=== PATIENT | male | born 1995 | race Caucasian/White ===

== ENCOUNTER 2017-04-06 18:23 | Inpatient (IN) | payer OTHER ==
[~2017-04-06] VITALS: Ht 180.3 cm; Wt 69.0 kg
[2017-04-06 19:08] LABS: MEAN CORPUSCULAR HEMOGLOBIN 29.6 pg (27.0-33.0); MEAN CORPUSCULAR HGB CONC 34.2 g/dl (32.0-36.5); MEAN CORPUSCULAR VOLUME 86.6 fl (80.0-96.0); PLATELET COUNT, AUTOMATED 271 10^3/uL (150-450); RED CELL DISTRIBUTION WIDTH 12.2 % (11.5-14.5); WHITE BLOOD COUNT 7.3 10^3/uL (4.0-10.0)
[2017-04-06] MEDS ORDERED: VITMTA PO (19:18)
[2017-04-06 19:40] LABS: ALBUMIN 4.5 GM/DL (3.2-5.2); ALBUMIN/GLOBULIN RATIO 1.45 (1.00-1.93); ALKALINE PHOSPHATASE 105 U/L (45-117); ALT/SGPT 37 U/L (12-78); ANION GAP 5 MEQ/L (8-16); AST/SGOT 32 U/L (7-37); BILIRUBIN,DIRECT 0.1 MG/DL (0.0-0.2); BILIRUBIN,TOTAL 0.5 MG/DL (0.2-1.0); BLOOD UREA NITROGEN 10 MG/DL (7-18); CALCIUM LEVEL 9.7 MG/DL (8.5-10.1); CARBON DIOXIDE LEVEL 32 MEQ/L (21-32); CHLORIDE LEVEL 103 MEQ/L (98-107); CREATININE FOR GFR 0.71 MG/DL (0.70-1.30); GLUCOSE, FASTING 78 MG/DL (70-105); POTASSIUM SERUM 4.2 MEQ/L (3.5-5.1); SODIUM LEVEL 140 MEQ/L (136-145); TOTAL PROTEIN 7.6 GM/DL (6.4-8.2)
[2017-04-06 20:43] LABS: METHADONE URINE NEGATIVE (NEGATIVE)
[2017-04-06 23:06] VITALS: BP 137/82
[2017-04-07] MEDS ORDERED: traZODone 50 MG TAB PO PRN (00:15)
[2017-04-07] MEDS ORDERED: MAALOX 30 ML SUSP *UDC PO PRN (00:15)
[2017-04-07] MEDS ORDERED: ACETAMINOPHEN TAB 650MG DOSE (2X325MG) PO PRN (00:15)
[2017-04-07] MEDS ORDERED: MOM 30ML SUSPENSION UDC PO PRN (00:15)
[2017-04-07 06:00] VITALS: BP 112/54
--- NOTE | 2017-04-07 09:10 | HPEPDOC ---
[facility] Medical History & Physical Date of Admission Apr 06, 2017 History and Physical PCP: [facility] ATTENDING: Dr. Adalid Doran HPI: 22yoM admitted to [facility] for unspecified depressive disorder, being medically examined today. No acute medical complaints today. Denies any fevers, chills, weakness, fatigue, SCHMIDT, CP, SOB, cough, palpitations, abdominal pain, N/V /D or changes in bowel or bladder habits. 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 ROS: As noted in HPI, otherwise 11pt ROS of systems reviewed and unremarkable. PE: GEN: 22 yoM, appears stated age. Well-nourished, well developed. No acute distress. Alert and oriented x 3. Pleasant, interactive. HEENT: Normocephalic, atraumatic. Pupils are equal, round, and reactive to light. Extraocular movements are intact. No nystagmus appreciated. Sclera are nonicteric. Conjunctiva without injection. Nose midline. Nasal turbinates without bogginess. EACs both patent BL. TMs both visualized and ashley with good cone of light, no bulging or erythema. No facial asymmetry. Moist mucous membranes. Dentition fair. Pharynx pink and moist, no cobblestoning. Neck supple , trachea midline. No lymphadenopathy or thyromegaly appreciated. CHEST: Regular rate and rhythm, +S1, +S2 LUNGS: Clear to auscultation bilaterally. No wheezes, rales, or rhonchi. Breathing appears symmetric and easy. Patient is speaking in full sentences. No accessory muscle use. ABD: Round, soft, non-tender, non-distended. +Bowel sounds throughout. No rebound or guarding. No costovertebral angle tenderness. EXT: Pulses 2+ bilaterally dorsalis pedis and radial. No lower extremity edema appreciated. SKIN: [place], dry, warm. Capillary refill <2sec. No rashes. NEURO: Alert and oriented x 3. Cranial nerves III-XII are intact. No focal deficits appreciated. EKG: pending. A&P: 22yoM admitted to [facility] for unspecified depressive disorder 1. Psych. Plan per Psychiatry.Obtain baseline EKG to assure the safety of psychiatric medications as they can prolong the QT interval. 2. Follow up with PCP on discharge. 3. Staff member Arnaud present throughout exam. Vital Signs Vital Signs Date Time Temp Pulse Resp B/P (MAP) Pulse Ox O2 Delivery O2 Flow Rate FiO2 04/07/17 06:00 98.7 80 20 112/54 (73) 04/06/17 18:23 99 Room Air Laboratory Data Labs 24H Laboratory Tests 2 04/06/17 18:40: Nucleated Red Blood Cells % (auto) 0.0, Anion Gap 5L, Calcium Level 9.7, Aspartate Amino Transf (AST/SGOT) 32, Alanine Aminotransferase (ALT/SGPT) 37, Alkaline Phosphatase 105, Total Bilirubin 0.5, Direct Bilirubin 0.1, Total Protein 7.6, Albumin 4.5, Albumin/Globulin Ratio 1.45, Thyroid Stimulating Hormone (TSH) 0.539, Salicylates Level < 1.7L, Acetaminophen Level < 2.0L, Ethyl Alcohol Level < 0.003 04/06/17 19:54: Urine Amphetamines Screen NEGATIVE, Urine Benzodiazepines Screen NEGATIVE, Urine Opiates Screen NEGATIVE, Urine Methadone Screen NEGATIVE, Urine Barbiturates Screen NEGATIVE, Urine Phencyclidine Screen NEGATIVE, Urine Cocaine Metabolite Screen NEGATIVE, Urine Cannabinoids Screen NEGATIVE CBC/BMP Laboratory Tests 04/06/17 18:40 Red Blood Count 5.61, Mean Corpuscular Volume 86.6, Mean Corpuscular Hemoglobin 29.6, Mean Corpuscular Hemoglobin Concent 34.2, Red Cell Distribution Width 12.2 Home Medications Scheduled Multivitamins *[facility] STOCKED* (Thera M Plus *[facility] STOCKED*) 1 Tab Tab, 1 TAB PO DAILY Allergies Coded Allergies: No Known Allergies (Unverified , 04/06/17) Anu Barajas Apr 07, 2017 09:10
[2017-04-07 11:55] VITALS: BP 126/67
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
[2017-04-07] MEDS ORDERED: hydrOXYzine 50 MG TAB PO PRN (15:45)
[2017-04-07] MEDS: CitaloPRAM (CeleXA) 20 MG TAB PO SCH (16:05)
[2017-04-07 18:00] VITALS: BP 124/70
--- NOTE | 2017-04-08 01:08 | ECGEPIP ---
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
[2017-04-08 06:32] VITALS: BP 121/60
[2017-04-08] MEDS: CitaloPRAM (CeleXA) 20 MG TAB PO SCH (09:29)
[2017-04-08] MEDS ORDERED: TRAZO50TA PO (10:16)
[2017-04-08] MEDS ORDERED: CELE20TA PO (10:16)
[2017-04-08] MEDS ORDERED: HYDRO50TAB PO (10:16)
--- NOTE | 2017-04-08 11:44 | MHDSPDOC ---
[facility] Discharge Summary Discharge Summary DATE OF ADMISSION: Apr 06, 2017 at 22:17 DATE OF DISCHARGE: April 08, 2017 DISCHARGE DIAGNOSES: 1. Major Depressive disorder, single episode, severe, without psychotic symptoms REASON FOR ADMISSION: "Suicidal thoughts for the last 48 hours they became stronger but they have being building up for the last 3 months". History of Present Illness HISTORY OF THE PRESENT ILLNESS: Patient is a 22 -year-old , male, who pt states, "I want to kill myself." Pt reports suffering from suicidal thoughts with plan (MVA or OD) for the past 24 hours. He feels his suicidal thoughts are related to marital problems and legal issues. States he's been for the past 2 months (with no children), however is having significant financial issues and is unable to afford food for his family. Apparently, pt has not received his BH (housing assistance), therefore feels burdened with finances. Additionally, he was arrested last night following a domestic with his spouse. He also admits to having 2 bench warrants out for his arrest in [place] and [facility] is attempting to transfer charges to [place]. Pt continues to feel suicidal with plan to OD on sleeping medication or drive his vehicle into a tree. CONSULTANTS INVOLVED: None TREATMENT AND PROGRESS ON THE UNIT : The patient was evaluated yesterday morning and he was very depressed, he fulfilled the criteria for major Depressive disorder, but his depression is secondary to severe financial problems he has been having for the last couple of months and those problems are affecting his relationship with his . He said he had been irritable and that made things worse for him because that created the problem with his the night he came to the ED. He said he can't afford food for him and his , he has had problems with the car insurance and they have threatened him to send the report to the [employer] [place]. today, he said he spoke last night with his and he believes that because she got a liquor department manager job yesterday, she might be able to contribute to the household expenses. He thinks this might help with this situation and he spoke with his , both are willing to go for marriage counseling. He thinks with the medications I prescribed for him, the marital counseling and the money his will be able to contribute for the household, he will be O.K. community mental health social worker has instructed him as of what services are available for him, like loans for soldiers, etc (financial assistance). today he states hestill feels depressed, but less than yesterday because he had that conversation with his . He has denied SI?HI and psychotic symptoms. HOSPITAL COURSE: As above DISCHARGE ASSESSMENT: Patient is safe to be discharged, he is not suicidal, not homicidal and not psychotic. MENTAL STATUS EXAMINATION ON DISCHARGE: Patient is a 22 year old male, who is alert, cooperative, dressed in hospital clothes, with good eye contact, fair hygiene and grooming Speech is coherent, normal in rate, tone and volume. Language skills are fair. Thought processes including: Intact. Thought content: Goal-directed. Abstract reasoning, and computation: Fair. Description of associations: Good. Description of abnormal or psychotic thoughts: Denies suicidal ideation, denies homicidal ideation, denies thought delusions and denies auditory and visual hallucinations. Judgment: Limited. Insight: Limited. Orientation to oriented 3. Recent and remote memory: Intact. Attention span and concentration: Good. Language: Normal. Fund of knowledge: Fair. Mood: Less depressed. Affect: And less depressed, less constricted, more reactive. MEDICATIONS ON DISCHARGE: Scheduled Citalopram Hydrobromide (Celexa) 20 Mg Tab, 20 MG PO DAILY for DEPRESSION, #10 Multivitamins *[facility] STOCKED* (Thera M Plus *[facility] STOCKED*) 1 Tab Tab, 1 TAB PO DAILY, (Reported) Scheduled PRN Hydroxyzine HCl (Hydroxyzine HCl) 50 Mg Tab, 50 MG PO Q8H PRN for ANXIETY/ AGITATION, #21 Trazodone HCl (Trazodone HCl) 50 Mg Tab, 50 MG PO QHSP PRN for INSOMNIA, #7 PLAN/FOLLOWUP ARRANGEMENTS: * Mental Health Appt 1 * Mental Health 2nd Embedded * Therapist Pradeep Sutherland * Date Apr 12, 2017 * Time 14:00 Follow Up Care Education Label * Mental Health Appt 2 * Mental Health 2nd Embedded * Therapist Pradeep Sutherland * Date Apr 21, 2017 * Time 08:00 Follow Up Care Education Label * Medical * Medical Follow Up Ms. Mckinney * Mental Health 2nd Embedded * Date May 12, 2017 * Time 09:00 The amount of time spent in the coordination of care for this patient was approximately 30 minutes. Vital Signs/I&Os Vital Signs Date Time Temp Pulse Resp B/P (MAP) Pulse Ox O2 Delivery O2 Flow Rate FiO2 11/16/17 06:32 97.9 62 16 121/60 (80) 04/06/17 18:23 99 Room Air Laboratory Data Labs 24H Laboratory Tests 2 04/07/17 15:49: Total Creatine Kinase 136, Creatine Kinase MB 1.0, Creatine Kinase MB Relative Index 0.73, Troponin I < 0.02 Medications Scheduled Citalopram Hydrobromide (Celexa) 20 Mg Tab, 20 MG PO DAILY for DEPRESSION, #10 Multivitamins *[facility] STOCKED* (Thera M Plus *[facility] STOCKED*) 1 Tab Tab, 1 TAB PO DAILY, (Reported) Scheduled PRN Hydroxyzine HCl (Hydroxyzine HCl) 50 Mg Tab, 50 MG PO Q8H PRN for ANXIETY/ AGITATION, #21 Trazodone HCl (Trazodone HCl) 50 Mg Tab, 50 MG PO QHSP PRN for INSOMNIA, #7 Allergies Coded Allergies: No Known Allergies (Unverified , 04/06/17) DARELL FAULKNER MD Apr 08, 2017 11:44
== END 2017-04-08 12:15 | disposition home or self-care (01) | DRG 885 ==
LOC: M ED 18:23 → M ED INP 22:17 → M PSY 22:59
PROVIDERS: ADMIT Psychiatry & Neurology Psychiatry; ATTEND Psychiatry & Neurology Psychiatry
DX: F32.2 Major depressive disorder, single episode, severe without psychotic features (principal); Z63.0 Problems in relationship with spouse or partner; Z59.9 Problem related to housing and economic circumstances, unspecified; Z81.8 Family history of other mental and behavioral disorders

== ENCOUNTER 2017-04-23 06:22 | Inpatient (IN) | payer OTHER ==
[~2017-04-23] VITALS: Ht 180.3 cm; Wt 72.7 kg
[~2017-04-23 06:22] MED LIST: CELE20TA PO; HYDRO50TAB PO; TRAZO50TA PO; VITMTA PO
[2017-04-23 06:49] LABS: BASO % 0.3 % (0.0-1.0); EOS # 0.2 10^3/uL (0.0-0.50); IMMATURE GRANULOCYTE % 0.3 % (0-0); LYMPH # 2.6 10^3/uL (1.5-6.5); LYMPH % 38.5 % (24.0-44.0); MEAN CORPUSCULAR HEMOGLOBIN 30.6 pg (27.0-33.0); MEAN CORPUSCULAR HGB CONC 35.9 g/dl (32.0-36.5); MEAN CORPUSCULAR VOLUME 85.3 fl (80.0-96.0); MONO # 0.5 10^3/uL (0.0-0.8); NEUTROPHILS # 3.3 10^3/uL (1.8-7.7); NEUTROPHILS % 49.9 % (36.0-66.0); PLATELET COUNT, AUTOMATED 222 10^3/uL (150-450); RED CELL DISTRIBUTION WIDTH 12.4 % (11.5-14.5); WHITE BLOOD COUNT 6.6 10^3/uL (4.0-10.0)
[2017-04-23 07:12] LABS: ALBUMIN 3.8 GM/DL (3.2-5.2); ALBUMIN/GLOBULIN RATIO 1.31 (1.00-1.93); ALKALINE PHOSPHATASE 99 U/L (45-117); ALT/SGPT 32 U/L (12-78); ANION GAP 6 MEQ/L (8-16); AST/SGOT 24 U/L (7-37); BILIRUBIN,DIRECT 0.2 MG/DL (0.0-0.2); BILIRUBIN,TOTAL 0.8 MG/DL (0.2-1.0); BLOOD UREA NITROGEN 13 MG/DL (7-18); CALCIUM LEVEL 8.9 MG/DL (8.5-10.1); CARBON DIOXIDE LEVEL 28 MEQ/L (21-32); CHLORIDE LEVEL 108 MEQ/L (98-107); CREATININE FOR GFR 0.84 MG/DL (0.70-1.30); GLUCOSE, FASTING 98 MG/DL (70-105); SODIUM LEVEL 142 MEQ/L (136-145); TOTAL PROTEIN 6.7 GM/DL (6.4-8.2)
[2017-04-23] MEDS ORDERED: NS 1,000 ML IV ONE (07:15)
[2017-04-23] MEDS ORDERED: CHARCOAL ACTIVATED LIQUID 25 GM/120 ML BTL PO ONE (08:00)
--- NOTE | 2017-04-23 09:48 | ECGEPIP ---
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
[2017-04-23 12:26] LABS: METHADONE URINE NEGATIVE (NEGATIVE)
[2017-04-23] MEDS ORDERED: ACETAMINOPHEN TAB 650MG DOSE (2X325MG) PO PRN ×2 (16:15→18:30)
[2017-04-23] MEDS ORDERED: MAALOX 30 ML SUSP *UDC PO PRN ×2 (16:15→18:30)
[2017-04-23] MEDS ORDERED: MOM 30ML SUSPENSION UDC PO PRN ×2 (16:15→18:30)
[2017-04-23] MEDS ORDERED: traZODone 50 MG TAB PO PRN (16:15)
[2017-04-23] MEDS ORDERED: TRAZ50TA11 PO (17:13)
[2017-04-23] MEDS ORDERED: HYDR50TA70 PO (17:13)
[2017-04-23] MEDS ORDERED: CITA20TA4 PO (17:13)
[2017-04-23 18:07] VITALS: BP 119/84
[2017-04-23] MEDS ORDERED: hydrOXYzine 50 MG TAB PO PRN (18:30)
[2017-04-24 06:54] VITALS: BP 135/62
[2017-04-24] MEDS: MULTIVITAMINS/MINERALS THERAP 1 TAB PO SCH (09:42)
[2017-04-24] MEDS: CitaloPRAM (CeleXA) 20 MG TAB PO SCH (09:42)
[2017-04-24 11:14] VITALS: BP 124/74
[2017-04-24 18:00] VITALS: BP 126/70
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
[2017-04-25 06:37] VITALS: BP 134/61
[2017-04-25] MEDS: CitaloPRAM (CeleXA) 20 MG TAB PO SCH (09:28)
[2017-04-25] MEDS: MULTIVITAMINS/MINERALS THERAP 1 TAB PO SCH (09:28)
[2017-04-25 12:21] VITALS: BP 130/70
--- NOTE | 2017-04-25 17:15 | MHIPN ---
DATE: 04/25/2017 CHIEF COMPLAINT: Says feels okay. SUBJECTIVE: Seen for followup in the presence of staff. Says feels okay, and that he misses his , wants to go home. Has had no contact with his , per the patient, no visitation either. Says that he has no idea whether she will visit today or not. Says had a fairly good night. MENTAL STATUS EXAMINATION: Neat, cooperative though a bit guarded, at times somewhat disinterested. He is coherent. No agitation. No psychomotor retardation. Affect is restricted in range. Denies any suicidal thoughts or intents. No homicidal ideas or intents. No evidence of any psychosis. Cognition grossly intact. Judgment and insight remain compromised. ASSESSMENT: Major depressive disorder, severe, without psychotic features. PLAN: Continue current care, encourage participation in activities in the unit, and attempt to obtain collateral information. I would suggest that if there is some contact, a family meeting with his , prior to his discharge. He will be seeing the treatment team assigned to him tomorrow.
[2017-04-25 18:00] VITALS: BP 134/72
[2017-04-25] MEDS: traZODone 50 MG TAB PO PRN (20:37)
[2017-04-26 07:00] VITALS: BP 121/60
--- NOTE | 2017-04-26 09:18 | HPE ---
DATE OF ADMISSION: 04/23/2017 Please refer to psychiatric history and evaluation for further details on this admission. This examination and history is intended for medical issues which may need treatment, followup or consult on this 22-year-old male. ALLERGIES: No known allergies. PRIMARY CARE PROVIDER: [facility]. 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 EtOH none. No elicit drugs. IV drug use none. PAST MEDICAL HISTORY: Depression. PAST SURGICAL HISTORY: Negative. LABORATORY STUDIES: WBC 6.6, hemoglobin 15.6, hematocrit 435. Platelets 222. Sodium 142, potassium 4.0, chloride 108, CO2 28, BUN 13, creatinine 0.84. EKG shows sinus rhythm. Toxicology report was positive for opiates. He states he smoked heroine times one. Ten systems review was done and was unremarkable other than difficulty with sleep. No specific complaints. HOME MEDICATIONS: - citalopram 20 mg by mouth daily - hydroxyzine 50 mg by mouth three times daily as needed anxiety - MultiVite one by mouth daily - trazodone 50 mg by mouth daily at bedtime as needed for sleep PHYSICAL EXAMINATION: 22-year-old cooperative male, no acute distress. Height 71 inches, weight 72 kg, BMI 22.4. Blood pressure 124/74, pulse 74, respirations 16, temperature 98.2. The patient is alert and oriented times three. Pupils equal and reactive to light. Extraocular movements intact. Cornea and sclera clear. Conjunctiva normal. No facial asymmetry. Pharynx, tongue and gums pink and moist. Tongue is midline. Neck is supple, without lymphadenopathy. No thyromegaly. No goiter. Carotids 2+ without bruit. Chest clear to auscultation, without wheeze or retraction. Heart is regular. Abdomen benign. Bowel sounds positive. Genitourinary ()/Rectal: Not done. Extremities show equal strength, full range of motion. No cyanosis, clubbing or edema. Peripheral pulses equal and palpable bilaterally. Skin is warm and dry. IMPRESSION/PLAN: Psychiatric plan per psychiatry. Urine positive for opiates. Patient stated he smokes heroine IV times one. Will check acetaminophen level. EKG on file. Sinus rhythm .
[2017-04-26] MEDS: CitaloPRAM (CeleXA) 20 MG TAB PO SCH (09:29)
[2017-04-26] MEDS: MULTIVITAMINS/MINERALS THERAP 1 TAB PO SCH (09:29)
--- NOTE | 2017-04-26 13:08 | MHIPNPDOC ---
[facility] Progress Note Progress Note DATE OF SERVICE: 04/26/17 HISTORY: "Feels depressed, took an overdose. He is 22 years old. He is . 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 He came in after he had taken an overdose in front of his , wanted to kill himself, had been having difficulty for the last several months, he was here only a few weeks ago, was seen by Dr. Faulkner, please refer to her summary including discharge summary for details related to that admission. He was diagnosed with major depressive disorder, severe." VITAL SIGNS: See below. NEW TEST RESULTS: [facility] Laboratory Tests 2 04/26/17 09:28: Acetaminophen Level < 2.0L. CURRENT MEDICATIONS: See below. MENTAL STATUS EXAMINATION: Patient is a 22 year old male, who is sleepy, cooperative, dressed in hospital clothes, with good eye contact, fairly groomed Speech: Is Spontaneous and fluid. Language skills are Fair Thought processes including: Linear, logical Thought content: Guilty and angry thoughts about using drugs Abstract reasoning, and computation: Fair . Description of associations: Good Description of abnormal or psychotic thoughts: . Judgment: Poor Insight: Poor Orientation: oriented x 3 Recent and remote memory: good Attention span and concentration: Fair Language: Normal Fund of knowledge: Average Mood: "A little depressed". Affect: Congruent with mood DIAGNOSES: 1. Major depressive disorder, severe, without psychotic features. 2. Status post overdose. 3. Marital difficulties. ASSESSMENT: patient says he feels stupid and guilty for using drugs but is nt the first time he uses, he used heroine out of curiosity for the first time, when he was 17 years old. He used it this time because he got into a fight with his , "out of stupid things". He says he hasn't been using his medications. he was discharged on April 08 and he hasn't taken been taking his medications. MANAGEMENT PLAN: Will continue on the same medication treatment plan. Will address the addiction problem, he needs to stop minimizing it and needs to go to drug treatment. TIME SPENT: 20 minutes. Vital Signs Vital Signs Date Time Temp Pulse Resp B/P (MAP) Pulse Ox O2 Delivery O2 Flow Rate FiO2 04/26/17 07:00 99.3 70 16 121/60 (80) 04/25/17 06:37 Room Air 04/23/17 18:07 98 Laboratory Data [facility] Laboratory Tests 2 04/26/17 09:28: Acetaminophen Level < 2.0L Current Medications Current Medications Acetaminophen (Tylenol Tab) 650 mg Q6HP PRN PO HEADACHE or DISCOMFORT; Start 04/23/17 at 16:15; Stop 04/23/17 at 16:29; Status DC Acetaminophen (Tylenol Tab) 650 mg Q6HP PRN PO HEADACHE or DISCOMFORT; Start 04/23/17 at 18:30; Stop 05/23/17 at 18:29 Al Hydrox/Mg Hydrox/Simethicone (Mylanta) 30 ml Q4HP PRN PO HEARTBURN/ INDIGESTION; Start 04/23/17 at 16:15; Stop 04/23/17 at 16:29; Status DC Al Hydrox/Mg Hydrox/Simethicone (Mylanta) 30 ml Q4HP PRN PO HEARTBURN/ INDIGESTION; Start 04/23/17 at 18:30; Stop 05/23/17 at 18:29 Citalopram Hydrobromide (CeleXA) 20 mg DAILY PO Last administered on 04/26/17 09:29; Start 04/24/17 at 09:00; Stop 05/24/17 at 08:59 Home Med (Med Rec Complete!) ASDIRECTED XX ; Start 04/23/17 at 17:15; Stop 04/23/17 at 17:16; Status DC Hydroxyzine HCl (Atarax) 50 mg TIDP PRN PO ANXIETY/AGITATION; Start 04/23/17 at 18:30; Stop 05/23/17 at 18:29 Magnesium Hydroxide (Milk Of Magnesia) 30 ml DAILYPRN PRN PO CONSTIPATION; Start 04/23/17 at 16:15; Stop 04/23/17 at 16:29; Status DC Magnesium Hydroxide (Milk Of Magnesia) 30 ml DAILYPRN PRN PO CONSTIPATION; Start 04/23/17 at 18:30; Stop 05/23/17 at 18:29 Multivitamins (Theragram-M) 1 tab DAILY PO Last administered on 04/26/17 09:29 ; Start 04/24/17 at 09:00; Stop 05/24/17 at 08:59 Trazodone HCl (Desyrel) 50 mg QHSP PRN PO INSOMNIA; Start 04/23/17 at 16:15; Stop 04/23/17 at 16:29; Status DC Trazodone HCl (Desyrel) 50 mg QHSP PRN PO INSOMNIA Last administered on t 20:37; Start 04/23/17 at 18:45; Stop 05/23/17 at 18:44 Allergies Coded Allergies: No Known Allergies (Unverified , 04/23/17) DARELL FAULKNER MD Apr 26, 2017 13:08
[2017-04-26 18:00] VITALS: BP 122/74
[2017-04-26] MEDS: traZODone 50 MG TAB PO PRN (20:34)
[2017-04-27 07:00] VITALS: BP 111/52
[2017-04-27] MEDS: MULTIVITAMINS/MINERALS THERAP 1 TAB PO SCH (09:13)
[2017-04-27] MEDS: CitaloPRAM (CeleXA) 20 MG TAB PO SCH (09:13)
--- NOTE | 2017-04-27 11:00 | MHIPNPDOC ---
[facility] Progress Note Progress Note DATE OF SERVICE: 04/27/17 HISTORY: "Feels depressed, took an overdose. He is 22 years old. He is . 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 He came in after he had taken an overdose in front of his , wanted to kill himself, had been having difficulty for the last several months, he was here only a few weeks ago, was seen by Dr. Faulkner, please refer to her summary including discharge summary for details related to that admission. He was diagnosed with major depressive disorder, severe." VITAL SIGNS: See below. NEW TEST RESULTS: N/A CURRENT MEDICATIONS: See below. MENTAL STATUS EXAMINATION: Patient is a 22 year old male, who is more cooperative today, dressed in personal clothes, with good eye contact, fairly groomed Speech: Normal in rate, tone and volume Language skills are Intact Thought processes including: Coherent Thought content: Guilty and angry thoughts about using drugs Abstract reasoning, and computation: good. Description of associations: Good Description of abnormal or psychotic thoughts: . Judgment: Poor Insight: Poor Orientation: oriented x 3 Recent and remote memory: good Attention span and concentration: Fair Language: Normal Fund of knowledge: Average Mood: "Daisy anxious". Affect: Congruent with mood DIAGNOSES: 1. Major depressive disorder, severe, without psychotic features. 2. Status post overdose. 3. Marital difficulties. ASSESSMENT: patient says he would go back to [place] where he was raised, if he is asked to leave the . He says he knows he has mad a mistake by using drugs but he ignores if they are going to take a disciplinary action against him for that. He thinks they will. 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 He thinks he will be able to stop susing in he future because he knows the amount of problems they have caused him in the and he has seen some of his friends of an overdose. he didn't aske to be discharged today, he denies medication side effects. MANAGEMENT PLAN: Willdiscontinue Trazodone and will start him on Seroquel 75 mgs PO QHS. TIME SPENT: 20 minutes. Vital Signs Vital Signs Date Time Temp Pulse Resp B/P (MAP) Pulse Ox O2 Delivery O2 Flow Rate FiO2 04/27/17 07:00 98.0 67 14 111/52 (71) 04/25/17 06:37 Room Air 04/23/17 18:07 98 Current Medications Current Medications Acetaminophen (Tylenol Tab) 650 mg Q6HP PRN PO HEADACHE or DISCOMFORT; Start 04/23/17 at 16:15; Stop 04/23/17 at 16:29; Status DC Acetaminophen (Tylenol Tab) 650 mg Q6HP PRN PO HEADACHE or DISCOMFORT; Start 04/23/17 at 18:30; Stop 05/23/17 at 18:29 Al Hydrox/Mg Hydrox/Simethicone (Mylanta) 30 ml Q4HP PRN PO HEARTBURN/ INDIGESTION; Start 04/23/17 at 16:15; Stop 04/23/17 at 16:29; Status DC Al Hydrox/Mg Hydrox/Simethicone (Mylanta) 30 ml Q4HP PRN PO HEARTBURN/ INDIGESTION; Start 04/23/17 at 18:30; Stop 05/23/17 at 18:29 Citalopram Hydrobromide (CeleXA) 20 mg DAILY PO Last administered on 04/27/17 09:13; Start 04/24/17 at 09:00; Stop 05/24/17 at 08:59 Home Med (Med Rec Complete!) ASDIRECTED XX ; Start 04/23/17 at 17:15; Stop 04/23/17 at 17:16; Status DC Hydroxyzine HCl (Atarax) 50 mg TIDP PRN PO ANXIETY/AGITATION; Start 04/23/17 at 18:30; Stop 05/23/17 at 18:29 Magnesium Hydroxide (Milk Of Magnesia) 30 ml DAILYPRN PRN PO CONSTIPATION; Start 04/23/17 at 16:15; Stop 04/23/17 at 16:29; Status DC Magnesium Hydroxide (Milk Of Magnesia) 30 ml DAILYPRN PRN PO CONSTIPATION; Start 04/23/17 at 18:30; Stop 05/23/17 at 18:29 Multivitamins (Theragram-M) 1 tab DAILY PO Last administered on 04/27/17 09:13 ; Start 04/24/17 at 09:00; Stop 05/24/17 at 08:59 Trazodone HCl (Desyrel) 50 mg QHSP PRN PO INSOMNIA; Start 04/23/17 at 16:15; Stop 04/23/17 at 16:29; Status DC Trazodone HCl (Desyrel) 50 mg QHSP PRN PO INSOMNIA Last administered on t 20:34; Start 04/23/17 at 18:45; Stop 05/23/17 at 18:44 Allergies Coded Allergies: No Known Allergies (Unverified , 04/23/17) DARELL FAULKNER MD Apr 27, 2017 11:00
[2017-04-27 18:00] VITALS: BP 110/72
[2017-04-27] MEDS ORDERED: QUEtiapine FUMARATE 25 MG TAB PO SCH (21:00)
[2017-04-28 06:42] VITALS: BP 125/58
[2017-04-28] MEDS: CitaloPRAM (CeleXA) 20 MG TAB PO SCH (09:10)
[2017-04-28] MEDS: MULTIVITAMINS/MINERALS THERAP 1 TAB PO SCH (09:10)
--- NOTE | 2017-04-28 10:21 | MHDSPDOC ---
[facility] Discharge Summary Discharge Summary DATE OF ADMISSION: Apr 23, 2017 at 16:04 DATE OF DISCHARGE: 2016 DISCHARGE DIAGNOSES: 1. Adjustment disorders with depressive symptoms 2. Polysubstance use disorder 3. cluster B personality traits REASON FOR ADMISSION: As per Dr. Jacinto note upon admission: " He is 22 years old. He is . 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 He came in after he had taken an overdose in front of his , wanted to kill himself, had been having difficulty for the last several months, he was here only a few weeks ago. Subsequent to that, has followed up with Maia Billings, he is on citalopram at 20 mg daily. Also takes hydroxyzine as needed for anxiety, and trazodone 50 mg at night for sleep. Says has been attending his appointments and matters came to a head, once again , in the context of marital difficulties, financial difficulties, legal ones as well, which has to do with an incident at [place] recently, which he did not want to go into. 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 His transports him back and forth to work. Says is glad he survived, but does say that he feels his wants him out of the so "she can ruin my life." These are his words." CONSULTANTS INVOLVED: None TREATMENT AND PROGRESS ON THE UNIT : Patient has had a good response to medications but he seemed to be impatient to be discharged as he did on his previous admission. He wanted to be discharged 24 hours after his admission and I told him he needed to be observed, we needed to make sure that the medications work well for him and that he was not presenting with side effects. He complained of difficulties falling asleep and trazodone was discontinued and ever since he has been taking Seroquel and he has said that he sleeps better with this medication. He is on citalopram 20 mg by mouth daily and hydroxyzine when necessary for anxiety. He has consistently denied homicidal and suicidal ideation, denied auditory and visual hallucinations and denied thought delusions. 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 Initially he was not attending groups and now he has been attending them but irregularly. HOSPITAL COURSE: As above DISCHARGE ASSESSMENT: Patient was not in danger to self or others, he was not suicidal and not homicidal, he didn't have any thought delusions and he didn't report auditory or visual hallucinations. MENTAL STATUS EXAMINATION ON DISCHARGE: Patient is a 22 year old male, who is more cooperative today, dressed in personal clothes, with good eye contact, fairly groomed Speech: Normal in rate, tone and volume, spontaneous and fluent Language skills are Good Thought processes including: Coherent, linear Thought content: Guilty and angry thoughts about using drugs Abstract reasoning, and computation: fair Description of associations: Good Description of abnormal or psychotic thoughts: He denied suicidal or homicidal ideation, denies thought delusions and denies A/V hallucinations. Judgment: Limited Insight: Limited Orientation: oriented x 3 Recent and remote memory: good Attention span and concentration: Fair Language: Normal Fund of knowledge: Average Mood: "I'm still anxious". Affect: Congruent with mood MEDICATIONS ON DISCHARGE: Scheduled Citalopram Hydrobromide (Citalopram Hydrobromide) 20 Mg Tab, 20 MG PO DAILY, ( Reported) Multivitamins *[facility] STOCKED* (Thera M Plus *[facility] STOCKED*) 1 Tab Tab, 1 TAB PO DAILY, (Reported) Scheduled PRN Hydroxyzine HCl (Hydroxyzine HCl) 50 Mg Tab, 50 MG PO TID PRN for ANXIETY, ( Reported) Trazodone HCl (Trazodone HCl) 50 Mg Tab, 50 MG PO QHS PRN for SLEEP, (Reported) PLAN/FOLLOWUP ARRANGEMENTS: . The amount of time spent in the coordination of care for this patient was approximately 30 minutes. Vital Signs/I&Os Vital Signs Date Time Temp Pulse Resp B/P (MAP) Pulse Ox O2 Delivery O2 Flow Rate FiO2 04/28/17 06:42 98.0 64 16 125/58 (80) 04/25/17 06:37 Room Air 04/23/17 18:07 98 Medications Scheduled Citalopram Hydrobromide (Citalopram Hydrobromide) 20 Mg Tab, 20 MG PO DAILY, ( Reported) Multivitamins *[facility] STOCKED* (Thera M Plus *[facility] STOCKED*) 1 Tab Tab, 1 TAB PO DAILY, (Reported) Quetiapine Fumerate (Quetiapine Fumarate) 25 Mg Tab, 75 MG PO QHS for insomnia, #21 Scheduled PRN Hydroxyzine HCl (Hydroxyzine HCl) 50 Mg Tab, 50 MG PO TID PRN for ANXIETY, ( Reported) Allergies Coded Allergies: No Known Allergies (Unverified , 04/23/17) DARELL FAULKNER MD Apr 28, 2017 10:21
[2017-04-28] MEDS ORDERED: QUET1TAB7 PO (10:40)
[2017-04-29] MEDS ORDERED: CITA20TA4 PO (14:27)
== END 2017-04-28 13:37 | disposition home or self-care (01) | DRG 881 ==
LOC: M ED 06:22 → M ED INP 16:04 → M PSY 17:55
PROVIDERS: ADMIT Psychiatry & Neurology Psychiatry; ATTEND Psychiatry & Neurology Psychiatry
DX: F43.21 Adjustment disorder with depressed mood (principal); F60.89 Other specific personality disorders; Z59.8 Other problems related to housing and economic circumstances; Z63.0 Problems in relationship with spouse or partner; F41.9 Anxiety disorder, unspecified; Z79.899 Other long term (current) drug therapy; F11.90 Opioid use, unspecified, uncomplicated

== ENCOUNTER 2017-05-02 20:43 | Inpatient (IN) | payer OTHER ==
[~2017-05-02] VITALS: Ht 180.3 cm; Wt 72.7 kg
[~2017-05-02 20:43] MED LIST changes: +CITA20TA4 PO; +HYDR50TA70 PO; +QUET1TAB7 PO; +TRAZ50TA11 PO
[2017-05-02 20:59] LABS: BASO % 0.1 % (0.0-1.0); IMMATURE GRANULOCYTE % 0.5 % (0-0); LYMPH # 1.5 10^3/uL (1.5-6.5); LYMPH % 18.5 % (24.0-44.0); MEAN CORPUSCULAR HEMOGLOBIN 29.9 pg (27.0-33.0); MEAN CORPUSCULAR HGB CONC 35.2 g/dl (32.0-36.5); MONO # 0.3 10^3/uL (0.0-0.8); MONO % 3.4 % (0.0-5.0); NEUTROPHILS # 6.4 10^3/uL (1.8-7.7); NEUTROPHILS % 77.5 % (36.0-66.0); PLATELET COUNT, AUTOMATED 237 10^3/uL (150-450); RED CELL DISTRIBUTION WIDTH 12.4 % (11.5-14.5); WHITE BLOOD COUNT 8.2 10^3/uL (4.0-10.0)
[2017-05-02] MEDS ORDERED: NS 1,000 ML IV ONE (21:00)
[2017-05-02 21:24] LABS: ALBUMIN 4.1 GM/DL (3.2-5.2); ALBUMIN/GLOBULIN RATIO 1.32 (1.00-1.93); ALKALINE PHOSPHATASE 93 U/L (45-117); ALT/SGPT 26 U/L (12-78); ANION GAP 10 MEQ/L (8-16); AST/SGOT 19 U/L (7-37); BILIRUBIN,DIRECT 0.2 MG/DL (0.0-0.2); BILIRUBIN,TOTAL 0.6 MG/DL (0.2-1.0); BLOOD UREA NITROGEN 10 MG/DL (7-18); CALCIUM LEVEL 9.1 MG/DL (8.5-10.1); CARBON DIOXIDE LEVEL 25 MEQ/L (21-32); CHLORIDE LEVEL 105 MEQ/L (98-107); CREATININE FOR GFR 0.94 MG/DL (0.70-1.30); GLUCOSE, FASTING 115 MG/DL (70-105); POTASSIUM SERUM 3.7 MEQ/L (3.5-5.1); SODIUM LEVEL 140 MEQ/L (136-145); TOTAL PROTEIN 7.2 GM/DL (6.4-8.2)
[2017-05-02 21:34] LABS: METHADONE URINE NEGATIVE (NEGATIVE)
--- NOTE | 2017-05-03 07:23 | ECGEPIP ---
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
[2017-05-03] MEDS ORDERED: QUET1TAB7 PO (13:20)
[2017-05-03 16:00] VITALS: BP 139/82
[2017-05-03] MEDS ORDERED: hydrOXYzine 50 MG TAB PO PRN (16:15)
[2017-05-03] MEDS ORDERED: MOM 30ML SUSPENSION UDC PO PRN (16:15)
[2017-05-03] MEDS ORDERED: MAALOX 30 ML SUSP *UDC PO PRN (16:15)
[2017-05-03] MEDS ORDERED: ACETAMINOPHEN TAB 650MG DOSE (2X325MG) PO PRN (16:15)
--- NOTE | 2017-05-03 19:37 | ECGEPIP ---
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
[2017-05-03] MEDS: QUEtiapine FUMARATE 25 MG TAB PO SCH (20:37)
[2017-05-04 06:41] VITALS: BP 116/63
[2017-05-04] MEDS: CitaloPRAM (CeleXA) 20 MG TAB PO SCH (09:05)
[2017-05-04] MEDS: MULTIVITAMINS/MINERALS THERAP 1 TAB PO SCH (09:05)
--- NOTE | 2017-05-04 11:47 | MHHPEPDOC ---
General Date Of Admission: May 03, 2017 Legal Status: 9.39 Chief Complaint Suicidal ideation History of Present Illness HISTORY OF THE PRESENT ILLNESS: As per ED note:"PT has been struggling with depression and SI for a few months and 04/23 was admitted to [facility] after he attemptd suicide by OD. Yesterday PT's of 3 months (together 6 months) moved home to [place] and is pursuing a divorce he does not want. PT states he has a hx of co dependancy and that he continues to feel suicidal in regards to his marriage endijng and cannot create goals for his future. 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 After PT's left yesterday he spent a few hours feeling very sad and keeping complete focus on his depression and he states he attmpted suicide by OD. He became scared and called a friend who then called for help. PT denies HI or hallucinations. He is in treatment at the [facility] and findsit beneficial. PT is aware currently there are no beds on [facility] and that he will need to be transfered. If the weather is bad PT may remain ED and be transfered to [facility] if discharges have been completed. 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[facility] [place] -[place] [phone] Psychiatric Review of Systems Depression (2 or more weeks): depressed mood, insomnia/hypersomnia, feelings of excess/guilt, feelings of worthlesness, decreased energy, difficulty concentrating Robina (4 or more days of): engages in risky behavior Psychosis: denies PTSD: denies Anxiety: situational anxiety, stressor related anxiety Anxiety/ 6 months or more of: restlessness, keyed up, difficulty concentrating , irritability, muscle tension, sleep disturbance Past Psychiatric History Previous Psychiatric Diagnosis: Major Depressive disorder, Substance Use disorder, cluster B personality Previous Psychiatric Admissions: [facility]. This is the third hospitalization in three months Suicide Attempts: yes ( overdose) Psychiatric Follow-up: Behavioral Health Psychiatric medications: He took Seroquel consistently but he missed Celexa a few times Past Medical History Head Injury: No Seizures: No Hospitalizations: Yes Surgeries: No Family Medical/Psychiatric HX Psychiatric Disorders: No Addiction: No Suicide Attemps/Completions: No Addiction History heroin Social History Childhood: "Pretty normal". Has a younger sibling, he denies any type of abuse. He says his father "has never been there for me" Abuse/Trauma:.Denies Current Living Situation: [place] living on post because he already had problems with his , but he had been living off post with his who just left him and took off to [place].. Education: HS. 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 Social Support: A friend who lives in [place]. His mother. Legal: Two pending bench warrants in [place] Marital: but . His just left him. Mental Status Examination General Appearance: well groomed, appears stated age Build: thin Demeanor: preoccupied Eye Contact: avoidant Activity: anxious Behavior: cooperative Speech: clear, spontaneous, reg/rate,rhythm,volume Mood: depressed, anxious Affect: constricted, congruent Thought Process: logical/linear Thought Content (Delusions): none reported Thought Content (Other): none reported Thought Content (Aggressive): none reported Perception (Hallucinations): none reported Perception (Other): none reported Cognition (Impairment of): none reported Cognition(Intelligence Est.): average Oriented: Awake, Alert, Oriented times three Insight: poor Judgment: Poor Diagnoses 1. Major Depressive Disorder, recurrent, severe 2. Cluster B personality disorder. Assessment Patient seems to be depressed. This is his third admission in less than 2 months , he doesn't have any coping skills. He has been using drugs, even when this time his urine tox was clean, he hasn'ty been dealing at all with change and difficulties. I believe he will benefit from growth media mixer mushroom treatment. Initial Treatment Plan 1. Patient was admitted on a status. 2. Complete history was obtained. 3. With patients permission, family will be contacted and database will be expanded. 4. Patients medication regimen will be reviewed and changed accordingly. 5. Patient will be provided with protected environment. 6. Patient will be treated with individual, group, and milieu therapies. 7. Patient will receive supportive psych-education. 8. Discharge planning will commence immediately. 9. Outpatient follow-up treatment will be strongly recommended. 10. The initial treatment plan will focus initially on: * Depression. * Risk for suicide. * Substance abuse. ESTIMATED LENGTH OF STAY: 5-7 DAYS. TIME SPENT COUNSELING AND COORDINATING INITIAL CARE: 60 minutes. Vital Signs Vital Signs Date Time Temp Pulse Resp B/P (MAP) Pulse Ox O2 Delivery O2 Flow Rate FiO2 05/04/17 06:41 98.9 68 14 116/63 (80) Room Air 05/03/17 16:00 100 Medications Scheduled Citalopram Hydrobromide (Citalopram Hydrobromide) 20 Mg Tab, 20 MG PO DAILY, ( Reported) Multivitamins *[facility] STOCKED* (Thera M Plus *[facility]OCKED*) 1 Tab Tab, 1 TAB PO DAILY, (Reported) Quetiapine Fumerate (Quetiapine Fumarate) 25 Mg Tab, 75 MG PO QHS, (Reported) Scheduled PRN Hydroxyzine HCl (Hydroxyzine HCl) 50 Mg Tab, 50 MG PO TID PRN for ANXIETY, ( Reported) Allergies Coded Allergies: No Known Allergies (Unverified , 05/02/17) DARELL FAULKNER MD May 04, 2017 11:47
[2017-05-04] MEDS: hydrOXYzine 50 MG TAB PO PRN ×2 (12:12→20:42)
[2017-05-04 18:27] VITALS: BP 111/53
[2017-05-04] MEDS: QUEtiapine FUMARATE 25 MG TAB PO SCH (20:40)
--- NOTE | 2017-05-04 22:41 | HPE ---
DATE OF ADMISSION: 05/03/2017 HISTORY OF PRESENT ILLNESS: Please refer to the psychiatric history and evaluation for further details on this admission. This examination and history is intended for medical issues which may need treatment, followup or consultation on this 22-year-old male who was readmitted after having taken an overdose of Tylenol, aspirin, Benadryl, and Celexa. He was recently discharged 04/28/2017 from the inpatient mental health unit. PRIMARY CARE PROVIDER: [facility] ALLERGIES: No known allergies. 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 He states ETOH - none. Smokes - none. Recreational drug use - none. PAST MEDICAL HISTORY: depression. PAST SURGICAL HISTORY: negative. HOME MEDICATIONS: - citalopram 20 mg by mouth daily - hydroxyzine 50 mg by mouth three times a day as needed for anxiety - Multivite 1 by mouth daily - trazodone 75 mg by mouth at bedtime as needed for sleep LABORATORY DATA: WBC 8.2, hemoglobin 15, hematocrit 42.6, platelet 237. Sodium 140, potassium 3.7, chloride 105, CO2 25. BUN 10, creatinine 0.94. Nonfasting glucose 115. BUN 10, creatinine 0.94. Liver enzymes were normal. Initially acetaminophen at 2049 hours on the 10th it was 23.8 and on the 11th it rico to 27.9. Later on 0235 hours it was coming down again to 17.6. REVIEW OF SYSTEMS: 10-systems review was done and was unremarkable. The patient had no complaints. PHYSICAL EXAMINATION: 22-year-old cooperative male. No acute distress. Vital signs stable. Height 71 inches, weight 72.7 kg. BMI 22. Blood pressure 116/62, pulse 58, respirations 14, temperature 98.9. The patient is alert and oriented times three. Pupils equal and reactive to light. Extraocular movements intact. Cornea and sclera clear. Conjunctiva normal. No facial asymmetry. Pharynx, tongue, and gums pink and moist. Tongue is midline. Neck is supple, without lymphadenopathy. No thyromegaly. No goiter. Carotids 2+ without bruit. Chest clear to auscultation, without wheeze or retraction. Heart is regular. Abdomen benign. Bowel sounds positive. /Rectal: Not done. Extremities show equal strength. Full range of motion. No cyanosis, clubbing or edema. Peripheral pulses equal and palpable bilaterally. Skin is warm and dry. Cranial nerves III-XII grossly intact. IMPRESSION AND PLAN: 1. Psychiatric: Plan per psychiatry. 2. EKG on file is sinus rhythm. 3. No acute medical issues.
[2017-05-05 06:47] VITALS: BP 113/66
[2017-05-05] MEDS: MULTIVITAMINS/MINERALS THERAP 1 TAB PO SCH (08:24)
[2017-05-05] MEDS: CitaloPRAM (CeleXA) 20 MG TAB PO SCH (08:24)
[2017-05-05] MEDS: hydrOXYzine 50 MG TAB PO PRN ×2 (08:24→13:26)
--- NOTE | 2017-05-05 12:43 | MHIPNPDOC ---
[facility] Progress Note Progress Note DATE OF SERVICE: 05/05/17 HISTORY: HISTORY OF THE PRESENT ILLNESS: As per ED note:"PT has been struggling with depression and SI for a few months and 04/23 was admitted to [facility] after he attemptd suicide by OD. Yesterday PT's of 3 months (together 6 months) moved home to [place] and is pursuing a divorce he does not want. PT states he has a hx of co dependancy and that he continues to feel suicidal in regards to his marriage endijng and cannot create goals for his future. 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 After PT's left yesterday he spent a few hours feeling very sad and keeping complete focus on his depression and he states he attmpted suicide by OD. He became scared and called a friend who then called for help. PT denies HI or hallucinations. He is in treatment at the [facility] and findsit beneficial. PT is aware currently there are no beds on [facility] and that he will need to be transfered. If the weather is bad PT may remain ED and be transfered to [facility] if discharges have been completed. 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 NEW TEST RESULTS: N/A CURRENT MEDICATIONS: See below. MENTAL STATUS EXAMINATION: Patient is a 22-year old male, who is alert, cooperative, dressed in hospital clothes, a little calmer. Speech: Is Coherent Language skills are Good Thought processes including: Linear, coherent Thought content: Focused on the possibility of going to rehab. Abstract reasoning, and computation: Not assessed at this time Description of associations: Good Description of abnormal or psychotic thoughts: Denies SI/HI, denies A/V, denies thought delusions Judgment: Limited Insight: Limited Orientation: Oriented x 3 Recent and remote memory: Intact Attention span and concentration: Good Language: Normal Fund of knowledge: Good Mood: Anxious/depressed Affect: Depressed/anxious DIAGNOSES: 1. Major Depressive disorder, recurrent, severe 2. Heroine use disorder ASSESSMENT: Patient seems to be irritable, but he is a little less anxious than yesterday. He says he slept well and he spoke with his mother and she has told him he will have to go for treatment (Rehab). He says he can go to Rehab at a place close to where his parents live in [place]. MANAGEMENT PLAN: Will continue on the same medications and will tell him he has to go for treatment now, within the , it is what his DELLA is demanding him to do. TIME SPENT: 20 minutes. Vital Signs Vital Signs Date Time Temp Pulse Resp B/P (MAP) Pulse Ox O2 Delivery O2 Flow Rate FiO2 05/05/17 06:47 96.8 60 14 113/66 (82) Room Air 05/03/17 16:00 100 Current Medications Current Medications Acetaminophen (Tylenol Tab) 650 mg Q6HP PRN PO HEADACHE or DISCOMFORT; Start 05/03/17 at 16:15; Stop 06/02/17 at 16:14 Al Hydrox/Mg Hydrox/Simethicone (Mylanta) 30 ml Q4HP PRN PO HEARTBURN/ INDIGESTION; Start 05/03/17 at 16:15; Stop 06/02/17 at 16:14 Citalopram Hydrobromide (CeleXA) 20 mg DAILY PO Last administered on 08:24; Start 05/04/17 at 09:00; Stop 06/03/17 at 08:59 Home Med (Med Rec Complete!) ASDIRECTED XX ; Start 05/03/17 at 13:30; Stop at 13:30; Status DC Hydroxyzine HCl (Atarax) 50 mg Q4HP PRN PO ANXIETY Last administered on 08:24; Start 05/04/17 at 12:00; Stop 06/02/17 at 16:14 Hydroxyzine HCl (Atarax) 50 mg TID PRN PO ANXIETY Last administered on 20:37; Start 05/03/17 at 16:15; Stop 05/04/17 at 11:55; Status DC Magnesium Hydroxide (Milk Of Magnesia) 30 ml DAILYPRN PRN PO CONSTIPATION; Start 05/03/17 at 16:15; Stop 06/02/17 at 16:14 Multivitamins (Theragram-M) 1 tab DAILY PO Last administered on 12/13/17at 08: 24; Start 05/04/17 at 09:00; Stop 06/03/17 at 08:59 Olanzapine (ZyPREXA) 5 mg Q6HP PRN PO ANXIETY/AGITATION; Start 05/04/17 at 12: 00; Stop 06/03/17 at 11:59 Quetiapine Fumarate (SEROquel) 75 mg QHS PO Last administered on 05/04/17t 20: 40; Start 05/03/17 at 21:00; Stop 06/02/17 at 20:59 Allergies Coded Allergies: No Known Allergies (Unverified , 05/02/17) DARELL FAULKNER MD May 05, 2017 12:43
[2017-05-05] MEDS: OLANZapine 5 MG TAB PO PRN (14:30)
[2017-05-05 18:00] VITALS: BP 129/58
[2017-05-05] MEDS: QUEtiapine FUMARATE 25 MG TAB PO SCH (20:47)
[2017-05-06 07:02] VITALS: BP 134/63
[2017-05-06] MEDS: MULTIVITAMINS/MINERALS THERAP 1 TAB PO SCH (08:24)
[2017-05-06] MEDS: CitaloPRAM (CeleXA) 20 MG TAB PO SCH (08:25)
[2017-05-06] MEDS: OLANZapine 5 MG TAB PO PRN (09:09)
--- NOTE | 2017-05-06 11:07 | MHIPNPDOC ---
[facility] Progress Note Progress Note DATE OF SERVICE: 05/06/17 HISTORY: HISTORY OF THE PRESENT ILLNESS: As per ED note:"PT has been struggling with depression and SI for a few months and 04/23 was admitted to [facility] after he attemptd suicide by OD. Yesterday PT's of 3 months (together 6 months) moved home to [place] and is pursuing a divorce he does not want. PT states he has a hx of co dependancy and that he continues to feel suicidal in regards to his marriage endijng and cannot create goals for his future. 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 After PT's left yesterday he spent a few hours feeling very sad and keeping complete focus on his depression and he states he attmpted suicide by OD. He became scared and called a friend who then called for help. PT denies HI or hallucinations. He is in treatment at the [facility] and findsit beneficial. PT is aware currently there are no beds on [facility] and that he will need to be transfered. If the weather is bad PT may remain ED and be transfered to [facility] if discharges have been completed. 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 NEW TEST RESULTS: N/A CURRENT MEDICATIONS: See below. MENTAL STATUS EXAMINATION: Patient is a 22-year old male, who is alert, cooperative, dressed in hospital clothes, a little calmer. Speech: spontaneous and fluent Language skills are fair Thought processes including: intact Thought content: Anxious thoughts about meeting with his DELLA to discuss his Rehab Abstract reasoning, and computation: Not assessed at this time Description of associations: Good Description of abnormal or psychotic thoughts: Denies SI/HI, denies A/V, denies thought delusions Judgment: Limited Insight: Limited Orientation: Oriented x 3 Recent and remote memory: Intact Attention span and concentration: Good Language: Normal Fund of knowledge: Good Mood: Anxious/depressed Affect: Depressed/anxious DIAGNOSES: 1. Major Depressive disorder, recurrent, severe 2. Heroine use disorder ASSESSMENT: He has accepted he won't go to [place] for Rehab. He has understood that [facility] wants to [facility] him to Rehab directly from [facility]. He still lokks depressed, although he tries to minimize it. He says it has helped him to talk to his family, they have been very supportive. He also says he has been talking to his who has decided to hold on the divorce process and she has been supportive too. MANAGEMENT PLAN: Will continue on the same medications and will tell him he has to go for treatment now, within the , it is what his DELLA is demanding him to do. TIME SPENT: 20 minutes. Vital Signs Vital Signs Date Time Temp Pulse Resp B/P (MAP) Pulse Ox O2 Delivery O2 Flow Rate FiO2 05/06/17 07:02 97.9 64 16 134/63 (86) 05/05/17 06:47 Room Air 05/03/17 16:00 100 Current Medications Current Medications Acetaminophen (Tylenol Tab) 650 mg Q6HP PRN PO HEADACHE or DISCOMFORT; Start 05/03/17 at 16:15; Stop 06/02/17 at 16:14 Al Hydrox/Mg Hydrox/Simethicone (Mylanta) 30 ml Q4HP PRN PO HEARTBURN/ INDIGESTION; Start 05/03/17 at 16:15; Stop 06/02/17 at 16:14 Citalopram Hydrobromide (CeleXA) 20 mg DAILY PO Last administered on 08:25; Start 05/04/17 at 09:00; Stop 06/03/17 at 08:59 Home Med (Med Rec Complete!) ASDIRECTED XX ; Start 05/03/17 at 13:30; Stop at 13:30; Status DC Hydroxyzine HCl (Atarax) 50 mg Q4HP PRN PO ANXIETY Last administered on 13:26; Start 05/04/17 at 12:00; Stop 06/02/17 at 16:14 Hydroxyzine HCl (Atarax) 50 mg TID PRN PO ANXIETY Last administered on 20:37; Start 05/03/17 at 16:15; Stop 05/04/17 at 11:55; Status DC Magnesium Hydroxide (Milk Of Magnesia) 30 ml DAILYPRN PRN PO CONSTIPATION; Start 05/03/17 at 16:15; Stop 06/02/17 at 16:14 Multivitamins (Theragram-M) 1 tab DAILY PO Last administered on 05/06/17 08: 24; Start 05/04/17 at 09:00; Stop 06/03/17 at 08:59 Olanzapine (ZyPREXA) 5 mg Q6HP PRN PO ANXIETY/AGITATION Last administered on 09:09; Start 05/04/17 at 12:00; Stop 06/03/17 at 11:59 Quetiapine Fumarate (SEROquel) 75 mg QHS PO Last administered on 05/05/17 20: 47; Start 05/03/17 at 21:00; Stop 06/02/17 at 20:59 Allergies Coded Allergies: No Known Allergies (Unverified , 05/02/17) DARELL FAULKNER MD May 06, 2017 11:07
[2017-05-06 18:00] VITALS: BP 128/79
[2017-05-06] MEDS: hydrOXYzine 50 MG TAB PO PRN (19:07)
[2017-05-06] MEDS: QUEtiapine FUMARATE 25 MG TAB PO SCH (20:22)
[2017-05-07 06:55] VITALS: BP 119/56
[2017-05-07] MEDS: hydrOXYzine 50 MG TAB PO PRN ×2 (08:07→20:18)
[2017-05-07] MEDS: CitaloPRAM (CeleXA) 20 MG TAB PO SCH (08:08)
[2017-05-07] MEDS: MULTIVITAMINS/MINERALS THERAP 1 TAB PO SCH (08:08)
[2017-05-07] MEDS: OLANZapine 5 MG TAB PO PRN (09:08)
--- NOTE | 2017-05-07 11:36 | MHIPNPDOC ---
[facility] Progress Note Progress Note DATE OF SERVICE: 05/07/17 HISTORY: HISTORY OF THE PRESENT ILLNESS: As per ED note:"PT has been struggling with depression and SI for a few months and 04/23 was admitted to [facility] after he attemptd suicide by OD. Yesterday PT's of 3 months (together 6 months) moved home to [place] and is pursuing a divorce he does not want. PT states he has a hx of co dependancy and that he continues to feel suicidal in regards to his marriage endijng and cannot create goals for his future. 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 After PT's left yesterday he spent a few hours feeling very sad and keeping complete focus on his depression and he states he attmpted suicide by OD. He became scared and called a friend who then called for help. PT denies HI or hallucinations. He is in treatment at the [facility] and findsit beneficial. PT is aware currently there are no beds on [facility] and that he will need to be transfered. If the weather is bad PT may remain ED and be transfered to [facility] if discharges have been completed. 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 -Will [phone] VITAL SIGNS: See below. NEW TEST RESULTS: N/A CURRENT MEDICATIONS: See below. MENTAL STATUS EXAMINATION: Patient is a 22-year old male, who is alert, cooperative, dressed in personal clothes, sad, improved eye contact Speech: Normal in rate, tone and volume Language skills are good Thought processes including: Coherent, Linear Thought content: Anxious thoughts about meeting with his [facility] to discuss his Rehab. he thinks he's ging to be away from his family for the Holidays and he says he needs them, he would be better off with his family Abstract reasoning, and computation: Not assessed at this time Description of associations: Not loose Description of abnormal or psychotic thoughts: Denies SI/HI, denies A/V, denies thought delusions Judgment: Poor Insight: Poor Orientation: Oriented x 3 Recent and remote memory: Good Attention span and concentration: Fair Language: Normal Fund of knowledge: Good Mood: Anxious/depressed Affect: Depressed/anxious DIAGNOSES: 1. Major Depressive disorder, recurrent, severe 2. Heroine use disorder ASSESSMENT: Patient's insight continues to be poor. He wants to go out to live with his family, he wants to be here because his is coming from [place]. He still doesn't realize thet they are not good together and they really want to live together, they both need treatment. He has a co dependent relationship and he is resistant to acknowledge how severe is his psychiatric/ substance abuse problem. MANAGEMENT PLAN: His DELLA is coming today to talk to him about exterminator treatment. shaka continue on the same treatment plan. TIME SPENT: 20 minutes. Vital Signs Vital Signs Date Time Temp Pulse Resp B/P (MAP) Pulse Ox O2 Delivery O2 Flow Rate FiO2 05/07/17 06:55 98.3 57 12 119/56 (77) 05/05/17 06:47 Room Air 05/03/17 16:00 100 Current Medications Current Medications Acetaminophen (Tylenol Tab) 650 mg Q6HP PRN PO HEADACHE or DISCOMFORT; Start 05/03/17 at 16:15; Stop 06/02/17 at 16:14 Al Hydrox/Mg Hydrox/Simethicone (Mylanta) 30 ml Q4HP PRN PO HEARTBURN/ INDIGESTION; Start 05/03/17 at 16:15; Stop 06/02/17 at 16:14 Citalopram Hydrobromide (CeleXA) 20 mg DAILY PO Last administered on 08:08; Start 05/04/17 at 09:00; Stop 06/03/17 at 08:59 Home Med (Med Rec Complete!) ASDIRECTED XX ; Start 05/03/17 at 13:30; Stop at 13:30; Status DC Hydroxyzine HCl (Atarax) 50 mg Q4HP PRN PO ANXIETY Last administered on 08:07; Start 05/04/17 at 12:00; Stop 06/02/17 at 16:14 Hydroxyzine HCl (Atarax) 50 mg TID PRN PO ANXIETY Last administered on 20:37; Start 05/03/17 at 16:15; Stop 05/04/17 at 11:55; Status DC Magnesium Hydroxide (Milk Of Magnesia) 30 ml DAILYPRN PRN PO CONSTIPATION; Start 05/03/17 at 16:15; Stop 06/02/17 at 16:14 Multivitamins (Theragram-M) 1 tab DAILY PO Last administered on 05/07/17 08: 08; Start 05/04/17 at 09:00; Stop 06/03/17 at 08:59 Olanzapine (ZyPREXA) 5 mg Q6HP PRN PO ANXIETY/AGITATION Last administered on 09:08; Start 05/04/17 at 12:00; Stop 06/03/17 at 11:59 Quetiapine Fumarate (SEROquel) 75 mg QHS PO Last administered on 05/06/17 20: 22; Start 05/03/17 at 21:00; Stop 06/02/17 at 20:59 Allergies Coded Allergies: No Known Allergies (Unverified , 05/02/17) DARELL FAULKNER MD May 07, 2017 11:36
[2017-05-07 18:00] VITALS: BP 146/82
[2017-05-07] MEDS: QUEtiapine FUMARATE 25 MG TAB PO SCH (20:18)
[2017-05-08 06:47] VITALS: BP 116/67
[2017-05-08] MEDS: CitaloPRAM (CeleXA) 20 MG TAB PO SCH (08:45)
[2017-05-08] MEDS: MULTIVITAMINS/MINERALS THERAP 1 TAB PO SCH (08:45)
[2017-05-08] MEDS: hydrOXYzine 50 MG TAB PO PRN ×3 (08:46→20:41)
[2017-05-08] MEDS: OLANZapine 5 MG TAB PO PRN (10:57)
[2017-05-08 18:41] VITALS: BP 136/85
[2017-05-08] MEDS: QUEtiapine FUMARATE 25 MG TAB PO SCH (20:41)
[2017-05-09 06:45] VITALS: BP 114/57
[2017-05-09] MEDS: hydrOXYzine 50 MG TAB PO PRN ×3 (08:37→20:41)
[2017-05-09] MEDS: MULTIVITAMINS/MINERALS THERAP 1 TAB PO SCH (08:37)
[2017-05-09] MEDS: CitaloPRAM (CeleXA) 20 MG TAB PO SCH (08:37)
[2017-05-09] MEDS: OLANZapine 5 MG TAB PO PRN (15:56)
[2017-05-09 18:15] VITALS: BP 138/73
[2017-05-09] MEDS: QUEtiapine FUMARATE 25 MG TAB PO SCH (20:41)
[2017-05-10 06:47] VITALS: BP 122/59
[2017-05-10] MEDS: MULTIVITAMINS/MINERALS THERAP 1 TAB PO SCH (08:19)
[2017-05-10] MEDS: CitaloPRAM (CeleXA) 20 MG TAB PO SCH (08:19)
[2017-05-10] MEDS ORDERED: clonazePAM 0.5 MG TAB PO ONE (12:30)
--- NOTE | 2017-05-10 12:34 | MHIPNPDOC ---
[facility] Progress Note Progress Note DATE OF SERVICE: 05/10/17 HISTORY: Patient reports very bad anxiety, ruminating about everything in his life. Reports staying up at night worrying, taking 1 hour to fall asleep even with seroquel. States he is still depressed but not suicidal, without intent and plan. Patient wishes to get marriage counseling outpt, and states that he will actually take his medications once he is discharged, unlike last time. States the celexa gave him side effect of feeling lightheaded. Denies manic symptoms and AVH. Patient has been hospitalized for SI 3 times total in the last 2 months, largely due to stress with his . Patient came in this time after OD on medications. VITAL SIGNS: See below. NEW TEST RESULTS: na CURRENT MEDICATIONS: See below. MENTAL STATUS EXAMINATION: Behavior: cooperative, related Speech: Normal in rate, tone and volume Thought processes including: Coherent, Linear Thought content: anxious ruminations of stressful factors in his life Judgment: Poor Insight: poor Orientation: Oriented x 3 Mood: Anxious, depressed Affect: anxious, dysthymic DIAGNOSES: 1. Major Depressive disorder, recurrent, severe 2. opiate use disorder ASSESSMENT: Patient remains depressed and anxious. He believes he has a plan to ensure his outpatient mental well being, but unclear how good his insight is. MANAGEMENT PLAN: - Change celexa to lexapro 10 mg daily due to side effects, for mood - Discontinued zyprexa and seroquel - Begin klonopin 0.25 mg BID for anxiety (gave him one dose now to see how he tolerates and whether the dose is high enough) - Begin trazodone 100 mg qhs PRN for sleep - PRNs: MOM, tylenol, mylanta TIME SPENT: 20 minutes. Vital Signs Vital Signs Date Time Temp Pulse Resp B/P (MAP) Pulse Ox O2 Delivery O2 Flow Rate FiO2 05/10/17 06:47 98.4 66 18 122/59 (80) 05/08/17 06:47 Room Air Current Medications Current Medications Acetaminophen (Tylenol Tab) 650 mg Q6HP PRN PO HEADACHE or DISCOMFORT; Start 05/03/17 at 16:15; Stop 06/02/17 at 16:14 Al Hydrox/Mg Hydrox/Simethicone (Mylanta) 30 ml Q4HP PRN PO HEARTBURN/ INDIGESTION; Start 05/03/17 at 16:15; Stop 06/02/17 at 16:14 Citalopram Hydrobromide (CeleXA) 20 mg DAILY PO Last administered on 08:19; Start 05/04/17 at 09:00; Stop 06/03/17 at 08:59 Home Med (Med Rec Complete!) ASDIRECTED XX ; Start 05/03/17 at 13:30; Stop at 13:30; Status DC Hydroxyzine HCl (Atarax) 50 mg Q4HP PRN PO ANXIETY Last administered on 20:41; Start 05/04/17 at 12:00; Stop 06/02/17 at 16:14 Hydroxyzine HCl (Atarax) 50 mg TID PRN PO ANXIETY Last administered on 20:37; Start 05/03/17 at 16:15; Stop 05/04/17 at 11:55; Status DC Magnesium Hydroxide (Milk Of Magnesia) 30 ml DAILYPRN PRN PO CONSTIPATION; Start 05/03/17 at 16:15; Stop 06/02/17 at 16:14 Multivitamins (Theragram-M) 1 tab DAILY PO Last administered on 05/10/17 08: 19; Start 05/04/17 at 09:00; Stop 06/03/17 at 08:59 Olanzapine (ZyPREXA) 5 mg Q6HP PRN PO ANXIETY/AGITATION Last administered on 15:56; Start 05/04/17 at 12:00; Stop 06/03/17 at 11:59 Quetiapine Fumarate (SEROquel) 75 mg QHS PO Last administered on 05/09/17 20: 41; Start 05/03/17 at 21:00; Stop 06/02/17 at 20:59 Allergies Coded Allergies: No Known Allergies (Unverified , 05/02/17) ANTIONE DUNLAP MD May 10, 2017 12:34
[2017-05-10 18:00] VITALS: BP 125/70
[2017-05-10] MEDS: GABAPENTIN 300 MG CAP PO SCH (20:31)
[2017-05-10] MEDS: hydrOXYzine 50 MG TAB PO PRN (22:02)
[2017-05-10] MEDS: traZODone 100 MG TAB PO PRN (23:05)
[2017-05-11 06:30] VITALS: BP 116/58
[2017-05-11] MEDS: ESCITALOPRAM OXALATE 10 MG TAB (LEXAPRO) PO SCH (08:02)
[2017-05-11] MEDS: MULTIVITAMINS/MINERALS THERAP 1 TAB PO SCH (08:02)
[2017-05-11] MEDS: GABAPENTIN 300 MG CAP PO SCH (08:02)
[2017-05-11] MEDS: hydrOXYzine 50 MG TAB PO PRN ×2 (11:08→18:17)
[2017-05-11 18:00] VITALS: BP 126/71
--- NOTE | 2017-05-11 18:05 | MHIPNPDOC ---
[facility] Progress Note Progress Note DATE OF SERVICE: 05/11/17 HISTORY: Patient reports lucid dreams at night and waking up intermittently, unclear cause, though at times feels paralyzed while sleeping. Patient reports improved mood, but still feels anxious with occasional panic attacks, denies SI intent and plan. Has cravings for opiates. Denies AVH. VITAL SIGNS: See below. NEW TEST RESULTS: na CURRENT MEDICATIONS: See below. MENTAL STATUS EXAMINATION: Behavior: cooperative, related Speech: Normal in rate, tone and volume Thought processes including: Coherent, Linear Thought content: anxious ruminations of stressful factors in his life Judgment: Poor Insight: poor Orientation: Oriented x 3 Mood: Anxious, better Affect: anxious, dysthymic DIAGNOSES: 1. Major Depressive disorder, recurrent, severe 2. opiate use disorder ASSESSMENT: Patient remains depressed and anxious. He believes he has a plan to ensure his outpatient mental well being, gave details about his plans. MANAGEMENT PLAN: - Continue lexapro 10 mg daily for mood - Gabapentin 300 mg qam / 600 mg qhs for sleep and anxiety - prazosin 1 mg qhs for dreams - Begin trazodone 100 mg qhs PRN for sleep - PRNs: MOM, tylenol, mylanta TIME SPENT: 20 minutes. Vital Signs Vital Signs Date Time Temp Pulse Resp B/P (MAP) Pulse Ox O2 Delivery O2 Flow Rate FiO2 05/11/17 08:54 Room Air 05/11/17 06:30 99.2 70 16 116/58 (77) Current Medications Current Medications Acetaminophen (Tylenol Tab) 650 mg Q6HP PRN PO HEADACHE or DISCOMFORT; Start 05/03/17 at 16:15; Stop 06/02/17 at 16:14 Al Hydrox/Mg Hydrox/Simethicone (Mylanta) 30 ml Q4HP PRN PO HEARTBURN/ INDIGESTION; Start 05/03/17 at 16:15; Stop 06/02/17 at 16:14 Citalopram Hydrobromide (CeleXA) 20 mg DAILY PO Last administered on 08:19; Start 05/04/17 at 09:00; Stop 05/10/17 at 12:28; Status DC Escitalopram Oxalate (Lexapro) 10 mg DAILY PO Last administered on 05/11/17 08:02; Start 05/11/17 at 09:00; Stop 06/10/17 at 08:59 Gabapentin (Neurontin) 300 mg BID PO Last administered on 05/11/17 08:02; Start 05/10/17 at 21:00; Stop 06/09/17 at 20:59 Home Med (Med Rec Complete!) ASDIRECTED XX ; Start 05/03/17 at 13:30; Stop at 13:30; Status DC Hydroxyzine HCl (Atarax) 50 mg Q4HP PRN PO ANXIETY Last administered on 11:08; Start 05/04/17 at 12:00; Stop 06/02/17 at 16:14 Hydroxyzine HCl (Atarax) 50 mg TID PRN PO ANXIETY Last administered on 20:37; Start 05/03/17 at 16:15; Stop 05/04/17 at 11:55; Status DC Magnesium Hydroxide (Milk Of Magnesia) 30 ml DAILYPRN PRN PO CONSTIPATION; Start 05/03/17 at 16:15; Stop 06/02/17 at 16:14 Multivitamins (Theragram-M) 1 tab DAILY PO Last administered on 05/11/17 08: 02; Start 05/04/17 at 09:00; Stop 06/03/17 at 08:59 Olanzapine (ZyPREXA) 5 mg Q6HP PRN PO ANXIETY/AGITATION Last administered on 15:56; Start 05/04/17 at 12:00; Stop 05/10/17 at 12:28; Status DC Quetiapine Fumarate (SEROquel) 75 mg QHS PO Last administered on 05/09/17 20: 41; Start 05/03/17 at 21:00; Stop 05/10/17 at 12:28; Status DC Trazodone HCl (Desyrel) 100 mg QHSP PRN PO INSOMNIA Last administered on 23:05; Start 05/10/17 at 23:00; Stop 06/09/17 at 22:59 Allergies Coded Allergies: No Known Allergies (Unverified , 05/02/17) ANTIONE DUNLAP MD May 11, 2017 18:05
[2017-05-11] MEDS: traZODone 100 MG TAB PO PRN (20:17)
[2017-05-11] MEDS ORDERED: GABAPENTIN 300 MG CAP PO SCH (21:00)
[2017-05-11] MEDS ORDERED: PRAZOSIN 1 MG CAP PO SCH (21:00)
[2017-05-12 07:03] VITALS: BP 132/57
[2017-05-12] MEDS: GABAPENTIN 300 MG CAP PO SCH (08:31)
[2017-05-12] MEDS: ESCITALOPRAM OXALATE 10 MG TAB (LEXAPRO) PO SCH (08:31)
[2017-05-12] MEDS: MULTIVITAMINS/MINERALS THERAP 1 TAB PO SCH (08:31)
[2017-05-12] MEDS: hydrOXYzine 50 MG TAB PO PRN (12:22)
[2017-05-12] MEDS ORDERED: traZODone 50 MG TAB PO PRN (17:30)
--- NOTE | 2017-05-12 17:47 | MHIPNPDOC ---
[facility] Progress Note Progress Note DATE OF SERVICE: 05/12/17 HISTORY: Patient reports taking 1.5 hours to fall asleep, with anxious ruminating thoughts. Patient has anxiety throughout the day, states he also has a little bit of opiate craving. Patient interested in eventually going to rehab , also interested in receiving methadone or suboxone to keep him off of the heroin. Patient denies SI intent and plan. Patient is aware of his discharge plan. VITAL SIGNS: See below. NEW TEST RESULTS: NA CURRENT MEDICATIONS: See below. MENTAL STATUS EXAMINATION: Behavior: cooperative, related Speech: Normal in rate, tone and volume Thought processes including: Coherent, Linear Thought content: anxious ruminations of stressful factors in his life Judgment: improving Insight: improving Orientation: Oriented x 3 Mood: Anxious, better Affect: anxious, dysthymic DIAGNOSES: 1. Major Depressive disorder, recurrent, severe 2. opiate use disorder ASSESSMENT: Patient remains depressed and anxious. He believes he has a plan to ensure his outpatient mental well being, gave details about his plans. MANAGEMENT PLAN: - Continue lexapro 10 mg daily for mood - Gabapentin 300 mg qam / 900 mg qhs for sleep and anxiety - prazosin 2 mg qhs for dreams - Begin trazodone 100 mg qhs PRN for sleep - PRNs: MOM, tylenol, mylanta TIME SPENT: 20 minutes. Vital Signs Vital Signs Date Time Temp Pulse Resp B/P (MAP) Pulse Ox O2 Delivery O2 Flow Rate FiO2 05/12/17 07:03 98.2 77 14 132/57 (82) 05/11/17 08:54 Room Air Current Medications Current Medications Acetaminophen (Tylenol Tab) 650 mg Q6HP PRN PO HEADACHE or DISCOMFORT; Start 05/03/17 at 16:15; Stop 06/02/17 at 16:14 Al Hydrox/Mg Hydrox/Simethicone (Mylanta) 30 ml Q4HP PRN PO HEARTBURN/ INDIGESTION; Start 05/03/17 at 16:15; Stop 06/02/17 at 16:14 Citalopram Hydrobromide (CeleXA) 20 mg DAILY PO Last administered on 08:19; Start 05/04/17 at 09:00; Stop 05/10/17 at 12:28; Status DC Escitalopram Oxalate (Lexapro) 10 mg DAILY PO Last administered on 05/12/17 08:31; Start 05/11/17 at 09:00; Stop 06/10/17 at 08:59 Gabapentin (Neurontin) 300 mg BID PO Last administered on 05/11/17 08:02; Start 05/10/17 at 21:00; Stop 05/11/17 at 17:58; Status DC Gabapentin (Neurontin) 300 mg DAILY PO Last administered on 05/12/17 08:31; Start 05/12/17 at 09:00; Stop 06/09/17 at 20:59 Gabapentin (Neurontin) 600 mg QHS PO Last administered on 05/11/17 20:18; Start 05/11/17 at 21:00; Stop 06/10/17 at 20:59 Home Med (Med Rec Complete!) ASDIRECTED XX ; Start 05/03/17 at 13:30; Stop at 13:30; Status DC Hydroxyzine HCl (Atarax) 50 mg Q4HP PRN PO ANXIETY Last administered on 12:22; Start 05/04/17 at 12:00; Stop 06/02/17 at 16:14 Hydroxyzine HCl (Atarax) 50 mg TID PRN PO ANXIETY Last administered on 20:37; Start 05/03/17 at 16:15; Stop 05/04/17 at 11:55; Status DC Magnesium Hydroxide (Milk Of Magnesia) 30 ml DAILYPRN PRN PO CONSTIPATION; Start 05/03/17 at 16:15; Stop 06/02/17 at 16:14 Multivitamins (Theragram-M) 1 tab DAILY PO Last administered on 05/12/17 08: 31; Start 05/04/17 at 09:00; Stop 06/03/17 at 08:59 Olanzapine (ZyPREXA) 5 mg Q6HP PRN PO ANXIETY/AGITATION Last administered on 15:56; Start 05/04/17 at 12:00; Stop 05/10/17 at 12:28; Status DC Prazosin HCl (Minipress) 1 mg QHS PO Last administered on 05/11/17 20:17; Start 05/11/17 at 21:00; Stop 06/10/17 at 20:59 Quetiapine Fumarate (SEROquel) 75 mg QHS PO Last administered on 05/09/17 20: 41; Start 05/03/17 at 21:00; Stop 05/10/17 at 12:28; Status DC Trazodone HCl (Desyrel) 100 mg QHSP PRN PO INSOMNIA Last administered on 20:17; Start 05/10/17 at 23:00; Stop 06/09/17 at 22:59 Allergies Coded Allergies: No Known Allergies (Unverified , 05/02/17) ANTIONE DUNLAP MD May 12, 2017 17:47
[2017-05-12 18:00] VITALS: BP 113/53
[2017-05-12 20:09] VITALS: BP 142/79
[2017-05-12] MEDS ORDERED: PRAZOSIN 1 MG CAP PO SCH (21:00)
[2017-05-12] MEDS ORDERED: GABAPENTIN 300 MG CAP PO SCH (21:00)
[2017-05-13 06:58] VITALS: BP 116/64
[2017-05-13] MEDS: MULTIVITAMINS/MINERALS THERAP 1 TAB PO SCH (08:12)
[2017-05-13] MEDS: ESCITALOPRAM OXALATE 10 MG TAB (LEXAPRO) PO SCH (08:12)
[2017-05-13] MEDS: hydrOXYzine 50 MG TAB PO PRN (08:12)
[2017-05-13] MEDS: GABAPENTIN 300 MG CAP PO SCH (08:12)
[2017-05-13] MEDS ORDERED: GABA-282 PO ×2 (08:55)
[2017-05-13] MEDS ORDERED: TRAZO50TA PO (08:55)
[2017-05-13] MEDS ORDERED: HYDRO50TAB PO (08:55)
[2017-05-13] MEDS ORDERED: ESCI10TA2 PO (08:55)
[2017-05-13] MEDS ORDERED: MINI1CAP PO (08:55)
--- NOTE | 2017-05-13 14:19 | MHDSPDOC ---
[facility] Discharge Summary Discharge Summary DATE OF ADMISSION: May 03, 2017 at 12:31 DATE OF DISCHARGE: May 13, 2017 at 11:30 DISCHARGE DIAGNOSES: 1. Major Depressive disorder, recurrent, severe 2. opiate use disorder REASON FOR ADMISSION: As per ED note 05/02/17: " PT has been struggling with depression and SI for a few months and 04/23 was admitted to [facility] after he attemptd suicide by OD. Yesterday PT's of 3 months (together 6 months) moved home to [place] and is pursuing a divorce he does not want. PT states he has a hx of co dependancy and that he continues to feel suicidal in regards to his marriage endijng and cannot create goals for his future. 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 After PT's left yesterday he spent a few hours feeling very sad and keeping complete focus on his depression and he states he attmpted suicide by OD. He became scared and called a friend who then called for help. PT denies HI or hallucinations. He is in treatment at the [facility] and findsit beneficial. PT is aware currently there are no beds on [facility] and that he will need to be transfered. If the weather is bad PT may remain ED and be transfered to [facility] if discharges have been completed. " CONSULTANTS INVOLVED: NA TREATMENT AND PROGRESS ON THE UNIT : Patient was initially put on celexa 20 mg daily for mood, atarax 50 mg TID for anxiety, seroquel 75 mg qhs for sleep, and zyprexa 5 mg q6 PRN for anxiety. Patient reported still taking an hour to fall asleep with the seroquel, and some side effects (lightheaded) with the celexa. Patient was transferred to another psychiatrist after about a week. These psychiatric medications were switched over to lexapro 10 mg daily for mood, trazodone 150 mg qhs for sleep, and gabapentin titrated up to 300 mg qam / 900 mg qhs for anxiety and sleep. Patient denied side effects on lexapro. He was continued on hydroxyzine 50 mg q4 PRN for anxiety. He was also started on prazosin 2 mg qhs for dreams/ nightmare. His mood and sleep improved over the course of hospitalization as well. DISCHARGE ASSESSMENT: Patient denied feeling depressed, without SI intent and plan, motivated to engage in outpatient treatment, and motivated to seek rehab in the future if he develops opiate cravings. Of note, patient was noted to have poor insight into his feelings and poor judgment. Providers discussed with patient going to [facility], but he refused. He instead will be at [facility] with extensive mental health treatment including close supervision. MENTAL STATUS EXAMINATION ON DISCHARGE: Behavior: cooperative, related Speech: Normal in rate, tone and volume Thought processes including: Coherent, Linear Thought content: anxious ruminations of stressful factors in his life Judgment: Poor Insight: fair Orientation: Oriented x 3 Mood: OK Affect: neutral, appropriate MEDICATIONS ON DISCHARGE: - lexapro 10 mg daily for mood - Gabapentin 300 mg qam / 900 mg qhs for sleep and anxiety - Trazodone 150 mg qhs PRN for sleep - hydroxyzine 50 mg q4 PRN for anxiety - prazosin 2 mg qhs for dreams/nightmares PLAN/FOLLOWUP ARRANGEMENTS: [facility], will be monitored closely by staff The amount of time spent in the coordination of care for this patient was approximately 20 minutes. Vital Signs/I&Os Vital Signs Date Time Temp Pulse Resp B/P (MAP) Pulse Ox O2 Delivery O2 Flow Rate FiO2 05/13/17 06:58 98.2 76 14 116/64 (81) 05/11/17 08:54 Room Air Medications Scheduled Escitalopram Oxalate (Escitalopram Oxalate) 10 Mg Tab, 10 MG PO DAILY for DEPRESSION for 7 Days, #7 Gabapentin (Gabapentin) 300 Mg Cap, 900 MG PO QHS for ANXIETY/AGITATION for 7 Days, #21 Gabapentin (Gabapentin) 300 Mg Cap, 300 MG PO DAILY for ANXIETY/AGITATION for 7 Days, #7 Prazosin HCl (Minipress) 1 Mg Cap, 2 MG PO QHS for SEE LABEL COMMENTS for 7 Days , #14 Scheduled PRN Hydroxyzine HCl (Hydroxyzine HCl) 50 Mg Tab, 50 MG PO Q4HP PRN for ANXIETY for 7 Days, #21 Trazodone HCl (Trazodone HCl) 50 Mg Tab, 150 MG PO QHSP PRN for INSOMNIA for 7 Days, #21 Allergies Coded Allergies: No Known Allergies (Unverified , 05/02/17) ANTIONE DUNLAP MD May 13, 2017 14:19
[2017-05-14] MEDS ORDERED: LEXA1TAB PO (06:22)
[2017-05-14] MEDS ORDERED: PRAZ1CAP PO (06:22)
[2017-05-14] MEDS ORDERED: NEUR300C PO ×2 (06:22)
[2017-05-14] MEDS ORDERED: VITMTA PO (06:22)
[2017-05-14] MEDS ORDERED: TRAZ50TA11 PO (06:22)
[2017-05-14] MEDS ORDERED: HYDR50TA70 PO (06:22)
== END 2017-05-13 11:30 | disposition home or self-care (01) | DRG 885 ==
LOC: M ED 20:43 → M ED INP 05-03 12:31 → M PSY 05-03 15:20
PROVIDERS: ADMIT Psychiatry & Neurology Psychiatry; ATTEND Psychiatry & Neurology Psychiatry
DX: F33.2 Major depressive disorder, recurrent severe without psychotic features (principal); F60.89 Other specific personality disorders; T45.0X2A Poisoning by antiallergic and antiemetic drugs, intentional self-harm, initial encounter; T39.1X2A Poisoning by 4-Aminophenol derivatives, intentional self-harm, initial encounter; T43.592A Poisoning by other antipsychotics and neuroleptics, intentional self-harm, initial encounter; Y92.9 Unspecified place or not applicable; F11.10 Opioid abuse, uncomplicated; Z79.899 Other long term (current) drug therapy

== ENCOUNTER 2017-05-13 22:50 | Inpatient (IN) | payer OTHER ==
[~2017-05-13] VITALS: Ht 180.3 cm; Wt 75.3 kg
[~2017-05-13 22:50] MED LIST changes: +ESCI10TA2 PO; +GABA-282 PO; +MINI1CAP PO
[2017-05-13] MEDS ORDERED: NALOXONE INJ 2 MG/2 ML SYRINGE (J2310) As Ordered ONE (23:01)
[2017-05-13] MEDS ORDERED: NALOXONE INJ 2 MG/2 ML SYRINGE (J2310) IV STA (23:04)
--- NOTE | 2017-05-13 23:40 | REPUSA ---
Clinical history: drug overdose. Comparison: None. Findings: The mediastinum and cardiac silhouette are within normal limits. The lungs are clear. No pl eural effusion or pneumothorax is seen. The osseous structures and soft tissues are unremarkable. Impression: No acute disease.
[2017-05-13 23:44] LABS: BASO % 0.3 % (0.0-1.0); EOS % 0.4 % (0.0-3.0); IMMATURE GRANULOCYTE % 0.8 % (0-0); LYMPH % 17.7 % (24.0-44.0); MEAN CORPUSCULAR HGB CONC 34.4 g/dl (32.0-36.5); MEAN CORPUSCULAR VOLUME 87.2 fl (80.0-96.0); MONO # 0.8 10^3/uL (0.0-0.8); MONO % 7.1 % (0.0-5.0); NEUTROPHILS # 8.4 10^3/uL (1.8-7.7); NEUTROPHILS % 73.7 % (36.0-66.0); PLATELET COUNT, AUTOMATED 221 10^3/uL (150-450); RED CELL DISTRIBUTION WIDTH 12.5 % (11.5-14.5); WHITE BLOOD COUNT 11.3 10^3/uL (4.0-10.0)
[2017-05-13 23:49] LABS: ABG HCO3 25.3 MEQ/L (22.0-26.0); ABG PARTIAL PRESSURE CO2 39.5 mmHg (35.0-45.0); ABG PARTIAL PRESSURE O2 175.9 mmHg (75.0-100.0); ABG STANDARD HCO3 25.4 MEQ/L (22.0-26.0); ABG TOTAL CO2 26.5 MEQ/L (22.0-29.0); ABG pH (ARTERIAL) 7.425 UNITS (7.350-7.450)
--- NOTE | 2017-05-13 23:50 | REPUSA ---
CT of the head Clinical history: altered mental status. Technique: Multiple axial CT images were obtained through the head without administration of contrast . Findings: The ventricles and sulci are symmetric bilaterally. There is no evidence of acute hemorrhag e or infarct. There is no midline shift, mass effect, or extra-axial fluid collection. The osseous st ructures are unremarkable. The visualized paranasal sinuses and mastoid air cells are clear. Impression: Negative study.
[2017-05-14 00:10] LABS: ALBUMIN 3.8 GM/DL (3.2-5.2); ALBUMIN/GLOBULIN RATIO 1.23 (1.00-1.93); ALKALINE PHOSPHATASE 85 U/L (45-117); ALT/SGPT 88 U/L (12-78); ANION GAP 7 MEQ/L (8-16); AST/SGOT 45 U/L (7-37); BILIRUBIN,DIRECT < 0.1 MG/DL (0.0-0.2); BILIRUBIN,TOTAL 0.2 MG/DL (0.2-1.0); BLOOD UREA NITROGEN 12 MG/DL (7-18); CARBON DIOXIDE LEVEL 30 MEQ/L (21-32); CHLORIDE LEVEL 103 MEQ/L (98-107); CREATININE FOR GFR 0.95 MG/DL (0.70-1.30); GLUCOSE, FASTING 91 MG/DL (70-105); POTASSIUM SERUM 4.1 MEQ/L (3.5-5.1); SODIUM LEVEL 140 MEQ/L (136-145); TOTAL PROTEIN 6.9 GM/DL (6.4-8.2)
[2017-05-14 00:42] LABS: MUCUS, URINE RFX SMALL (NEGATIVE); SPECIFIC GRAVITY UR AUTO RFX 1.008 (1.002-1.035); SQUAM EPITHELIAL CELL UR AURFX 0 /HPF (0-6)
[2017-05-14 00:57] LABS: METHADONE URINE NEGATIVE (NEGATIVE)
[2017-05-14] MEDS ORDERED: NEUR300C PO ×2 (06:22)
[2017-05-14] MEDS ORDERED: VITMTA PO (06:22)
[2017-05-14] MEDS ORDERED: HYDR50TA70 PO (06:22)
[2017-05-14] MEDS ORDERED: LEXA1TAB PO (06:22)
[2017-05-14] MEDS ORDERED: TRAZ50TA11 PO (06:22)
[2017-05-14] MEDS ORDERED: PRAZ1CAP PO (06:22)
[2017-05-14] MEDS ORDERED: MOM 30ML SUSPENSION UDC PO PRN (11:30)
[2017-05-14] MEDS ORDERED: MAALOX 30 ML SUSP *UDC PO PRN (11:30)
[2017-05-14] MEDS ORDERED: ACETAMINOPHEN TAB 650MG DOSE (2X325MG) PO PRN (11:30)
[2017-05-14] MEDS ORDERED: PRAZOSIN 1 MG CAP PO PRN (11:30)
[2017-05-14] MEDS: ESCITALOPRAM OXALATE 10 MG TAB (LEXAPRO) PO SCH (12:04)
[2017-05-14] MEDS: MULTIVITAMINS/MINERALS THERAP 1 TAB PO SCH (12:04)
--- NOTE | 2017-05-14 12:39 | MHHPEPDOC ---
[facility] History & Physical History and Physical DATE OF ADMISSION: May 14, 2017 at 09:17 LEGAL STATUS AT ADMISSION: 9.39 CHIEF COMPLAINT: drug OD HISTORY OF PRESENT ILLNESS: Patient is a 22-year-old male, no reported PMH, PPH of MDD, 3 psychiatric hospitalizations in last 3 months, prior SA by OD, presents for heroin overdose. The patient was discharged from this psych unit yesterday after he attempted suicide by OD. The discharge plan was that his mother would stay with him, as the patient refused care home hospitalization. Patient states that he and his decided to do heroin "one last time" before his mother arrived from [place]. The patient smoked heroin to the point where he passed out and had difficulty breathing, as per ED report. The ambulance was called by the and patient was given narcan in the ED, recovered with normal vitals. Currently patient regrets what he did, but claims that it was not suicidal. Unable to tell whether patient is minimizing symptoms. Patient currently feels depressed and anxious, does not go into detail about other psychiatric symptoms. Patient wishes to leave the hospital, claims he will go to [facility] treatment after he leaves. As per ED note 05/02/17 from his last admission: " PT has been struggling with depression and SI for a few months and 04/23 was admitted to [facility] after he attemptd suicide by OD. Yesterday PT's of 3 months (together 6 months) moved home to [place] and is pursuing a divorce he does not want. PT states he has a hx of co dependancy and that he continues to feel suicidal in regards to his marriage endijng and cannot create goals for his future. 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 After PT's left yesterday he spent a few hours feeling very sad and keeping complete focus on his depression and he states he attmpted suicide by OD. He became scared and called a friend who then called for help. PT denies HI or hallucinations. He is in treatment at the [facility] and findsit beneficial. PT is aware currently there are no beds on [facility] and that he will need to be transfered. If the weather is bad PT may remain ED and be transfered to [facility] if discharges have been completed. " CONSULTANTS INVOLVED: NA TREATMENT AND PROGRESS ON THE UNIT : Patient was initially put on celexa 20 mg daily for mood, atarax 50 mg TID for anxiety, seroquel 75 mg qhs for sleep, and zyprexa 5 mg q6 PRN for anxiety. Patient reported still taking an hour to fall asleep with the seroquel, and some side effects (lightheaded) with the celexa. Patient was transferred to another psychiatrist after about a week. These psychiatric medications were switched over to lexapro 10 mg daily for mood, trazodone 150 mg qhs for sleep, and gabapentin titrated up to 300 mg qam / 900 mg qhs for anxiety and sleep. Patient denied side effects on lexapro. He was continued on hydroxyzine 50 mg q4 PRN for anxiety. He was also started on prazosin 2 mg qhs for dreams/ nightmare. His mood and sleep improved over the course of hospitalization as well. States he is yawning a lot, feeling itchy, and very anxious. 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 MENTAL STATUS EXAMINATION: General appearance: casually groomed Behavior: superficially cooperative, related Speech: normal RRVT Thought processes: linear Thought content: appropriate to conversation Orientation: AAOX3 Judgment: poor Insight: poor Mood: "anxious" Affect: anxious, restricted range DIAGNOSES: 1. opiate use disorder 2. substance induced depressive disorder ASSESSMENT: Patient has poor insight into his symptoms and behaviors. Patient has repeated put his life at risk over the last 3 months, resulting in 4 psychiatric admissions. Cannot rely on patient following through on his plans outpatient. Patient needs to be hospitalized until an optimal discharge plan is created. PROBLEM LIST: 1. opiate use 2. depression INITIAL TREATMENT PLAN: 1. Patient was admitted on a 9.39. 2. Complete history was obtained. 3. With patients permission, family will be contacted and database will be expanded. 4. Patients medication regimen will be reviewed and changed accordingly. 5. Patient will be provided with protected environment. 6. Patient will be treated with individual, group, and milieu therapies. 7. Patient will receive supportive psych-education. 8. Discharge planning will commence immediately. 9. Outpatient follow-up treatment will be strongly recommended. 10. The initial treatment plan will focus initially on: * Depression. * Risk for suicide. * Substance abuse. - Reinitiate home meds: - lexapro 10 mg daily for mood - trazodone 150 mg qhs PRN for sleep - gabapentin 300 mg qam/900 mg qhs for anxiety - hydroxyzine 50 mg q4 PRN for anxiety - clonidine 0.1 mg q6 PRN for opiate withdrawal ESTIMATED LENGTH OF STAY: 4 DAYS. TIME SPENT COUNSELING AND COORDINATING INITIAL CARE: 20 minutes. Vital Signs Vital Signs Date Time Temp Pulse Resp B/P (MAP) Pulse Ox O2 Delivery O2 Flow Rate FiO2 05/14/17 09:15 98.6 91 16 150/72 (98) 98 Room Air 05/13/17 22:50 2.0 100 Laboratory Data 24H Labs Laboratory Tests 2 05/13/17 23:35: Blood Gas Bicarbonate Standard 25.4, Arterial Blood pH 7.425, Arterial Blood Partial Pressure CO2 39.5, Arterial Blood Partial Pressure O2 175.9H, Arterial Blood Total CO2 26.5, Arterial Blood HCO3 25.3, Arterial Blood Base Excess 1.0, Arterial Blood Oxygen Saturation 99.2H 05/13/17 23:38: Immature Granulocyte % (Auto) 0.8H, White Blood Count 11.3H, Red Blood Count 4.60, Hemoglobin 13.8L, Hematocrit 40.1L, Mean Corpuscular Volume 87.2, Mean Corpuscular Hemoglobin 30.0, Mean Corpuscular Hemoglobin Concent 34.4, Red Cell Distribution Width 12.5, Platelet Count 221, Neutrophils (%) (Auto) 73.7H, Lymphocytes (%) (Auto) 17.7L, Monocytes (%) (Auto) 7.1H, Eosinophils (%) (Auto) 0.4, Basophils (%) (Auto) 0.3, Neutrophils # (Auto) 8.4H, Lymphocytes # (Auto) 2.0, Monocytes # (Auto) 0.8, Eosinophils # (Auto) 0.0, Basophils # (Auto) 0.0, Immature Granulocyte # (Auto) 0.1H, Nucleated Red Blood Cells % (auto) 0.0, Urine Color YELLOW, Urine Appearance CLEAR, Urine pH 7.0, Urine Specific [place] 1.008, Urine Protein NEGATIVE, Urine Glucose (UA) NEGATIVE, Urine Ketones NEGATIVE, Urine Blood NEGATIVE, Urine Nitrite NEGATIVE, Urine Bilirubin NEGATIVE, Urine Urobilinogen 0.2, Urine Leukocyte Esterase NEGATIVE, Urine WBC ( Auto) 0, Urine RBC (Auto) 1, Urine Hyaline Casts (Auto) 2, Urine Bacteria (Auto ) NEGATIVE, Urine Squamous Epithelial Cells 0, Urine Mucus (Auto) SMALL, Urine Sperm (Auto) , Anion Gap 7L, Calcium Level 9.0, Aspartate Amino Transf (AST/SGOT ) 45H, Alanine Aminotransferase (ALT/SGPT) 88H, Alkaline Phosphatase 85, Total Bilirubin 0.2, Direct Bilirubin < 0.1, Total Creatine Kinase 127, Creatine Kinase MB 1.1, Creatine Kinase MB Relative Index 0.86, Troponin I < 0.02, Total Protein 6.9, Albumin 3.8, Albumin/Globulin Ratio 1.23, Thyroid Stimulating Hormone (TSH) 4.310H, Salicylates Level < 1.7L, Urine Amphetamines Screen NEGATIVE, Urine Benzodiazepines Screen NEGATIVE, Urine Opiates Screen POSITIVEH , Urine Methadone Screen NEGATIVE, Acetaminophen Level < 2.0L, Urine Barbiturates Screen NEGATIVE, Urine Phencyclidine Screen NEGATIVE, Urine Cocaine Metabolite Screen NEGATIVE, Urine Cannabinoids Screen NEGATIVE, Ethyl Alcohol Level < 0.003 CBC/BMP Laboratory Tests 05/13/17 23:38 Red Blood Count 4.60, Mean Corpuscular Volume 87.2, Mean Corpuscular Hemoglobin 30.0, Mean Corpuscular Hemoglobin Concent 34.4, Red Cell Distribution Width 12.5 , Neutrophils (%) (Auto) 73.7 H, Lymphocytes (%) (Auto) 17.7 L, Monocytes (%) ( Auto) 7.1 H, Eosinophils (%) (Auto) 0.4, Basophils (%) (Auto) 0.3, Neutrophils # (Auto) 8.4 H, Lymphocytes # (Auto) 2.0, Monocytes # (Auto) 0.8, Eosinophils # (Auto) 0.0, Basophils # (Auto) 0.0 Medications Scheduled Escitalopram Oxalate (Lexapro) 10 Mg Tab, 10 MG PO DAILY, (Reported) Gabapentin (Neurontin) 300 Mg Cap, 300 MG PO DAILY, (Reported) Gabapentin (Neurontin) 300 Mg Cap, 900 MG PO QHS, (Reported) Multivitamins *[facility] STOCKED* (Thera M Plus *[facility] STOCK[facility]*) 1 Tab Tab, 1 TAB PO DAILY, (Reported) Trazodone HCl (Trazodone HCl) 50 Mg Tab, 150 MG PO QHS, (Reported) Scheduled PRN Hydroxyzine HCl (Hydroxyzine HCl) 50 Mg Tab, 50 MG PO Q4H PRN for ANXIETY, ( Reported) Prazosin Hcl (Prazosin HCl) 1 Mg Cap, 2 MG PO QHS PRN for NIGHTMARES, (Reported) Allergies Coded Allergies: No Known Allergies (Unverified , 05/02/17) ANTIONE DUNLAP MD May 14, 2017 12:39
[2017-05-14] MEDS ORDERED: cloNIDine 0.1 MG TAB PO SCH (12:45)
[2017-05-14] MEDS: GABAPENTIN 300 MG CAP PO SCH ×2 (12:52→20:41)
[2017-05-14] MEDS: hydrOXYzine 50 MG TAB PO PRN (12:52)
--- NOTE | 2017-05-14 17:05 | ECGEPIP ---
Stationary ECG Study [facility] - ED Test Date: 2017-05-13 Pat Name: CECIL CHO Department: Room: - Gender: M Physician/Ophthalmologist: : 1995 Requested By: LENNY Tran Order Number: [id number] Reading MD: Savana Mccabe Measurements Intervals [place] Rate: 96 P: 59 AR: 164 QRS: 88 QRSD: 104 T: 53 QT: 338 QTc: 427 Interpretive Statements SINUS RHYTHM ST ELEVATION, EARLY REPOLARIZATION, CLINICAL CORRELATION TO EXCLUDE ISCHEMIA Electronically Signed On 05-14-2017 17:05:45 EST by Savana Mccabe
--- NOTE | 2017-05-14 17:14 | ECGEPIP ---
Stationary ECG Study [facility] - ED Test Date: 2017-05-14 Pat Name: CECIL CHO Department: Room: - Gender: M Shower Room Attendant: catrachito : 1995 Requested By: LENNY Tran Order Number: [id number] Reading MD: Savana Mccabe Measurements Intervals [place] Rate: 96 P: 55 RI: 174 QRS: 78 QRSD: 88 T: 48 QT: 325 QTc: 412 Interpretive Statements SINUS RHYTHM ST ELEVATION, PROBABLY EARLY REPOLARIZATION, PERICARDITIS, CLINICAL CORRELATION TO EXCLUDE ISCHEMIA SIMILAR 05/13/17 23:04 Electronically Signed On 05-14-2017 17:14:31 EST by Savana Mccabe
[2017-05-14] MEDS: cloNIDine 0.1 MG TAB PO PRN (17:49)
[2017-05-14 18:00] VITALS: BP 125/60
[2017-05-14] MEDS: traZODone 50 MG TAB PO PRN (20:41)
[2017-05-15 06:20] VITALS: BP 116/56
[2017-05-15] MEDS: ESCITALOPRAM OXALATE 10 MG TAB (LEXAPRO) PO SCH (08:08)
[2017-05-15] MEDS: cloNIDine 0.1 MG TAB PO PRN (08:08)
[2017-05-15] MEDS: GABAPENTIN 300 MG CAP PO SCH ×2 (08:08→20:38)
[2017-05-15] MEDS: MULTIVITAMINS/MINERALS THERAP 1 TAB PO SCH (08:08)
--- NOTE | 2017-05-15 10:32 | MHIPNPDOC ---
[facility] Progress Note Progress Note DATE OF SERVICE: 05/15/17 HISTORY: Patient reports improving opiate withdrawal symptoms, still anxious, but better than yesterday. Denies overly yawning, lacrimation, goosebumps. Saw his yesterday, who he stated is doing better (patient was concerned for her well being after he was hospitalized, as she become very anxious). Did not endorse SI intent and plan. VITAL SIGNS: See below. NEW TEST RESULTS: na CURRENT MEDICATIONS: See below. MENTAL STATUS EXAMINATION: General appearance: casually groomed Behavior: superficially cooperative, related Speech: normal RRVT Thought processes: linear Thought content: appropriate to conversation Orientation: AAOX3 Judgment: poor Insight: poor Mood: "better" Affect: anxious, restricted range DIAGNOSES: 1. opiate use disorder 2. substance induced depressive disorder ASSESSMENT: Patient has poor insight into his symptoms and behaviors. Patient has repeated put his life at risk over the last 3 months, resulting in 4 psychiatric admissions. Cannot rely on patient following through on his plans outpatient. Patient needs to be hospitalized until he can be escorted to terminal [facility] in [place] PROBLEM LIST: 1. opiate use 2. depression PLAN: - Reinitiate home meds: - lexapro 10 mg daily for mood - trazodone 150 mg qhs PRN for sleep - gabapentin 300 mg qam/900 mg qhs for anxiety - hydroxyzine 50 mg q4 PRN for anxiety - clonidine 0.1 mg q6 PRN for opiate withdrawal ESTIMATED LENGTH OF STAY: 4 DAYS. TIME SPENT COUNSELING AND COORDINATING INITIAL CARE: 20 minutes. Vital Signs Vital Signs Date Time Temp Pulse Resp B/P (MAP) Pulse Ox O2 Delivery O2 Flow Rate FiO2 05/15/17 08:08 135/76 05/15/17 06:20 98.1 74 16 05/14/17 09:15 98 Room Air 05/13/17 22:50 2.0 100 Current Medications Current Medications Acetaminophen (Tylenol Tab) 650 mg Q6HP PRN PO HEADACHE or DISCOMFORT; Start 05/14/17 at 11:30; Stop 06/13/17 at 11:29 Al Hydrox/Mg Hydrox/Simethicone (Mylanta) 30 ml Q4HP PRN PO HEARTBURN/ INDIGESTION; Start 05/14/17 at 11:30; Stop 06/13/17 at 11:29 Clonidine HCl (Catapres) 0.1 mg Q6HP PO ; Start 05/14/17 at 12:45; Stop at 13:03; Status DC Clonidine HCl (Catapres) 0.1 mg Q6HP PRN PO anxiety/aggitation Last administered on 05/15/17 08:08; Start 05/14/17 at 13:15; Stop 06/13/17 at 13: 14 Escitalopram Oxalate (Lexapro) 10 mg DAILY PO Last administered on 05/15/17 08:08; Start 05/14/17 at 09:00; Stop 06/13/17 at 08:59 Gabapentin (Neurontin) 300 mg QAM PO Last administered on 05/15/17 08:08; Start 05/14/17 at 09:00; Stop 06/13/17 at 08:59 Gabapentin (Neurontin) 900 mg QHS PO Last administered on 05/14/17 20:41; Start 05/14/17 at 21:00; Stop 06/13/17 at 20:59 Home Med (Med Rec Complete!) ASDIRECTED XX ; Start 05/14/17 at 06:30; Stop at 06:30; Status DC Hydroxyzine HCl (Atarax) 50 mg Q4HP PRN PO ITCHING Last administered on 12:52; Start 05/14/17 at 12:45; Stop 06/13/17 at 12:44 Magnesium Hydroxide (Milk Of Magnesia) 30 ml DAILYPRN PRN PO CONSTIPATION; Start 05/14/17 at 11:30; Stop 06/13/17 at 11:29 Multivitamins (Theragram-M) 1 tab DAILY PO Last administered on 05/15/17 08: 08; Start 05/14/17 at 09:00; Stop 06/13/17 at 08:59 Naloxone HCl (Narcan) 4 mg STAT STAT IV Last administered on 05/13/17 23:04 ; Start 05/13/17 at 23:04; Stop 05/13/17 at 23:05; Status DC Prazosin HCl (Minipress) 2 mg QHSP PRN PO nightmares; Start 05/14/17 at 11:30 ; Stop 06/13/17 at 11:29 Trazodone HCl (Desyrel) 150 mg QHSP PRN PO INSOMNIA Last administered on t 20:41; Start 05/14/17 at 11:30; Stop 06/13/17 at 11:29 Allergies Coded Allergies: No Known Allergies (Unverified , 05/02/17) ANTIONE DUNLAP MD May 15, 2017 10:32
[2017-05-15] MEDS: hydrOXYzine 50 MG TAB PO PRN ×2 (12:34→20:38)
[2017-05-15 18:00] VITALS: BP 121/59
[2017-05-15] MEDS: traZODone 50 MG TAB PO PRN (20:38)
[2017-05-16 06:28] VITALS: BP 122/57
[2017-05-16] MEDS: GABAPENTIN 300 MG CAP PO SCH ×2 (09:53→20:30)
[2017-05-16] MEDS: ESCITALOPRAM OXALATE 10 MG TAB (LEXAPRO) PO SCH (09:53)
[2017-05-16] MEDS: MULTIVITAMINS/MINERALS THERAP 1 TAB PO SCH (09:53)
--- NOTE | 2017-05-16 10:58 | MHIPNPDOC ---
[facility] Progress Note Progress Note DATE OF SERVICE: 05/16/17 HISTORY: Patient feels anxiety, but diminishing withdrawal symptoms overall. Patient has some cravings. States he is worried about his . Patient denies SI intent and plan. VITAL SIGNS: See below. NEW TEST RESULTS: na CURRENT MEDICATIONS: See below. MENTAL STATUS EXAMINATION: General appearance: casually groomed Behavior: superficially cooperative, related Speech: normal RRVT Thought processes: linear Thought content: appropriate to conversation Orientation: AAOX3 Judgment: poor Insight: poor Mood: "anxious" Affect: anxious, restricted range DIAGNOSES: 1. opiate use disorder 2. substance induced depressive disorder ASSESSMENT: Patient has poor insight into his symptoms and behaviors. Patient has repeated put his life at risk over the last 3 months, resulting in 4 psychiatric admissions. Cannot rely on patient following through on his plans outpatient. Patient needs to be hospitalized until he can be escorted to [facility] in [place] PROBLEM LIST: 1. opiate use 2. depression PLAN: - Reinitiate home meds: - lexapro 10 mg daily for mood - trazodone 150 mg qhs PRN for sleep - gabapentin 300 mg qam/900 mg qhs for anxiety - hydroxyzine 25 mg q4 PRN for anxiety - clonidine 0.1 mg q6 PRN for opiate withdrawal ESTIMATED LENGTH OF STAY: 4 DAYS. TIME SPENT COUNSELING AND COORDINATING INITIAL CARE: 20 minutes. Vital Signs Vital Signs Date Time Temp Pulse Resp B/P (MAP) Pulse Ox O2 Delivery O2 Flow Rate FiO2 05/16/17 08:01 Room Air 05/16/17 06:28 98.3 81 14 122/57 (78) 05/14/17 09:15 98 05/13/17 22:50 2.0 100 Current Medications Current Medications Acetaminophen (Tylenol Tab) 650 mg Q6HP PRN PO HEADACHE or DISCOMFORT; Start 05/14/17 at 11:30; Stop 06/13/17 at 11:29 Al Hydrox/Mg Hydrox/Simethicone (Mylanta) 30 ml Q4HP PRN PO HEARTBURN/ INDIGESTION; Start 05/14/17 at 11:30; Stop 06/13/17 at 11:29 Clonidine HCl (Catapres) 0.1 mg Q6HP PO ; Start 05/14/17 at 12:45; Stop at 13:03; Status DC Clonidine HCl (Catapres) 0.1 mg Q6HP PRN PO anxiety/aggitation Last administered on 05/15/17 08:08; Start 05/14/17 at 13:15; Stop 06/13/17 at 13: 14 Escitalopram Oxalate (Lexapro) 10 mg DAILY PO Last administered on 05/16/17 09:53; Start 05/14/17 at 09:00; Stop 06/13/17 at 08:59 Gabapentin (Neurontin) 300 mg QAM PO Last administered on 05/16/17 09:53; Start 05/14/17 at 09:00; Stop 06/13/17 at 08:59 Gabapentin (Neurontin) 900 mg QHS PO Last administered on 05/15/17 20:38; Start 05/14/17 at 21:00; Stop 06/13/17 at 20:59 Home Med (Med Rec Complete!) ASDIRECTED XX ; Start 05/14/17 at 06:30; Stop at 06:30; Status DC Hydroxyzine HCl (Atarax) 25 mg Q6HP PRN PO ANXIETY; Start 05/16/17 at 11:00; Stop 06/15/17 at 10:59; Status UNV Hydroxyzine HCl (Atarax) 50 mg Q4HP PRN PO ITCHING Last administered on 20:38; Start 05/14/17 at 12:45; Stop 06/13/17 at 12:44 Magnesium Hydroxide (Milk Of Magnesia) 30 ml DAILYPRN PRN PO CONSTIPATION; Start 05/14/17 at 11:30; Stop 06/13/17 at 11:29 Multivitamins (Theragram-M) 1 tab DAILY PO Last administered on 05/16/17 09: 53; Start 05/14/17 at 09:00; Stop 06/13/17 at 08:59 Naloxone HCl (Narcan) 4 mg STAT STAT IV Last administered on 05/13/17 23:04 ; Start 05/13/17 at 23:04; Stop 05/13/17 at 23:05; Status DC Prazosin HCl (Minipress) 2 mg QHSP PRN PO nightmares; Start 05/14/17 at 11:30 ; Stop 06/13/17 at 11:29 Trazodone HCl (Desyrel) 150 mg QHSP PRN PO INSOMNIA Last administered on t 20:38; Start 05/14/17 at 11:30; Stop 06/13/17 at 11:29 Allergies Coded Allergies: No Known Allergies (Unverified , 05/02/17) ANTIONE DUNLAP MD May 16, 2017 10:58
[2017-05-16] MEDS: hydrOXYzine 50 MG TAB PO PRN ×2 (11:23→20:31)
[2017-05-16 18:00] VITALS: BP 130/62
[2017-05-16] MEDS: traZODone 50 MG TAB PO PRN (20:30)
[2017-05-17 06:22] VITALS: BP 140/65
[2017-05-17 07:28] LABS: ALBUMIN 3.4 GM/DL (3.2-5.2); ALBUMIN/GLOBULIN RATIO 1.26 (1.00-1.93); ALKALINE PHOSPHATASE 115 U/L (45-117); ALT/SGPT 66 U/L (12-78); AST/SGOT 28 U/L (7-37); BILIRUBIN,DIRECT < 0.1 MG/DL (0.0-0.2); BILIRUBIN,TOTAL 0.2 MG/DL (0.2-1.0); TOTAL PROTEIN 6.1 GM/DL (6.4-8.2)
[2017-05-17] MEDS: ESCITALOPRAM OXALATE 10 MG TAB (LEXAPRO) PO SCH (08:22)
[2017-05-17] MEDS: MULTIVITAMINS/MINERALS THERAP 1 TAB PO SCH (08:22)
[2017-05-17] MEDS: hydrOXYzine 25 MG TAB PO PRN ×2 (08:22→17:41)
[2017-05-17] MEDS: GABAPENTIN 300 MG CAP PO SCH ×2 (08:22→20:35)
--- NOTE | 2017-05-17 13:07 | MHIPNPDOC ---
[facility] Progress Note Progress Note DATE OF SERVICE: 05/17/17 HISTORY: Patient states he feels very anxious, states someone who he had a conflict with in the past is now out of shelter. Did not endorse SI/HI intent and plan. Denies specific opiate withdrawal symptoms. VITAL SIGNS: See below. NEW TEST RESULTS: na CURRENT MEDICATIONS: See below. MENTAL STATUS EXAMINATION: General appearance: casually groomed Behavior: cooperative, related Speech: normal RRVT Thought processes: linear Thought content: appropriate to conversation Orientation: AAOX3 Judgment: poor Insight: poor Mood: "anxious" Affect: anxious, restricted range DIAGNOSES: 1. opiate use disorder 2. substance induced depressive disorder ASSESSMENT: Patient has poor insight into his symptoms and behaviors. Patient has repeated put his life at risk over the last 3 months, resulting in 4 psychiatric admissions. Cannot rely on patient following through on his plans outpatient. Patient needs to be hospitalized until he can be escorted to [facility] in [place] PROBLEM LIST: 1. opiate use 2. depression PLAN: - Reinitiate home meds: - klonopin 0.5 mg once for anxiety - lexapro 10 mg daily for mood - trazodone 150 mg qhs PRN for sleep - gabapentin 300 mg qam/900 mg qhs for anxiety - hydroxyzine 25 mg q4 PRN for anxiety - clonidine 0.1 mg q6 PRN for opiate withdrawal ESTIMATED LENGTH OF STAY: 4 DAYS. TIME SPENT COUNSELING AND COORDINATING INITIAL CARE: 20 minutes. Vital Signs Vital Signs Date Time Temp Pulse Resp B/P (MAP) Pulse Ox O2 Delivery O2 Flow Rate FiO2 05/17/17 06:22 98.6 71 14 140/65 (90) 05/16/17 08:01 Room Air 05/14/17 09:15 98 05/13/17 22:50 2.0 100 Laboratory Data 24[facility] Labs Laboratory Tests 2 05/17/17 06:59: Aspartate Amino Transf (AST/SGOT) 28, Alanine Aminotransferase (ALT/SGPT) 66, Alkaline Phosphatase 115, Total Bilirubin 0.2, Direct Bilirubin < 0.1, Total Protein 6.1L, Albumin 3.4, Albumin/Globulin Ratio 1.26 Current Medications Current Medications Acetaminophen (Tylenol Tab) 650 mg Q6HP PRN PO HEADACHE or DISCOMFORT; Start 05/14/17 at 11:30; Stop 1/21/18 at 11:29 Al Hydrox/Mg Hydrox/Simethicone (Mylanta) 30 ml Q4HP PRN PO HEARTBURN/ INDIGESTION; Start 05/14/17 at 11:30; Stop 06/13/17 at 11:29 Clonidine HCl (Catapres) 0.1 mg Q6HP PO ; Start 05/14/17 at 12:45; Stop at 13:03; Status DC Clonidine HCl (Catapres) 0.1 mg Q6HP PRN PO anxiety/aggitation Last administered on 05/15/17 08:08; Start 05/14/17 at 13:15; Stop 06/13/17 at 13: 14 Escitalopram Oxalate (Lexapro) 10 mg DAILY PO Last administered on 05/17/17 08:22; Start 05/14/17 at 09:00; Stop 06/13/17 at 08:59 Gabapentin (Neurontin) 300 mg QAM PO Last administered on 05/17/17 08:22; Start 05/14/17 at 09:00; Stop 06/13/17 at 08:59 Gabapentin (Neurontin) 900 mg QHS PO Last administered on 05/16/17 20:30; Start 05/14/17 at 21:00; Stop 06/13/17 at 20:59 Home Med (Med Rec Complete!) ASDIRECTED XX ; Start 05/14/17 at 06:30; Stop at 06:30; Status DC Hydroxyzine HCl (Atarax) 25 mg Q6HP PRN PO ANXIETY Last administered on 08:22; Start 05/16/17 at 11:00; Stop 06/15/17 at 10:59 Hydroxyzine HCl (Atarax) 50 mg Q4HP PRN PO ITCHING Last administered on 20:31; Start 05/14/17 at 12:45; Stop 06/13/17 at 12:44 Magnesium Hydroxide (Milk Of Magnesia) 30 ml DAILYPRN PRN PO CONSTIPATION; Start 05/14/17 at 11:30; Stop 06/13/17 at 11:29 Multivitamins (Theragram-M) 1 tab DAILY PO Last administered on 05/17/17 08: 22; Start 05/14/17 at 09:00; Stop 06/13/17 at 08:59 Naloxone HCl (Narcan) 4 mg STAT STAT IV Last administered on 05/13/17 23:04 ; Start 05/13/17 at 23:04; Stop 05/13/17 at 23:05; Status DC Prazosin HCl (Minipress) 2 mg QHSP PRN PO nightmares; Start 05/14/17 at 11:30 ; Stop 06/13/17 at 11:29 Trazodone HCl (Desyrel) 150 mg QHSP PRN PO INSOMNIA Last administered on 20:30; Start 05/14/17 at 11:30; Stop 06/13/17 at 11:29 Allergies Coded Allergies: No Known Allergies (Unverified , 05/02/17) ANTIONE DUNLAP MD May 17, 2017 13:07
[2017-05-17] MEDS ORDERED: clonazePAM 0.5 MG TAB PO ONE (13:15)
[2017-05-17 14:51] LABS: THYROXINE (T4) 6.4 UG/DL (6.0-11.6)
[2017-05-17 18:03] VITALS: BP 135/75
[2017-05-17] MEDS: traZODone 50 MG TAB PO PRN (20:35)
[2017-05-17] MEDS: diphenhydrAMINE 50 MG CAP PO SCH (21:00)
[2017-05-17 22:07] VITALS: BP 136/76
[2017-05-17] MEDS: cloNIDine 0.1 MG TAB PO PRN (22:07)
[2017-05-18 06:52] VITALS: BP 134/63
[2017-05-18] MEDS: GABAPENTIN 300 MG CAP PO SCH ×3 (09:00→20:45)
[2017-05-18] MEDS: ESCITALOPRAM OXALATE 10 MG TAB (LEXAPRO) PO SCH ×2 (09:00→11:28)
[2017-05-18] MEDS: MULTIVITAMINS/MINERALS THERAP 1 TAB PO SCH ×2 (09:00→11:28)
--- NOTE | 2017-05-18 10:58 | MHIPNPDOC ---
[facility] Progress Note Progress Note DATE OF SERVICE: 05/18/17 HISTORY: As per admission note on 05/14/17: "Patient is a 22-year-old male, no reported PMH, PPH of MDD, 3 psychiatric hospitalizations in last 3 months, prior SA by OD, presents for heroin overdose. The patient was discharged from this psych unit yesterday after he attempted suicide by OD. The discharge plan was that his mother would stay with him, as the patient refused medical terminologist hospitalization. Patient states that he and his decided to do heroin "one last time" before his mother arrived from [place]. The patient smoked heroin to the point where he passed out and had difficulty breathing, as per ED report. The ambulance was called by the and patient was given narcan in the ED, recovered with normal vitals. Currently patient regrets what he did, but claims that it was not suicidal. Unable to tell whether patient is minimizing symptoms. Patient currently feels depressed and anxious, does not go into detail about other psychiatric symptoms. Patient wishes to leave the hospital, claims he will go to medical terminologist treatment after he leaves." VITAL SIGNS: See below. NEW TEST RESULTS: 24[facility] Labs Laboratory Tests 2 05/17/17 13:57: Thyroid Stimulating Hormone (TSH) 0.547, Free Thyroxine Index 2.2, Thyroxine (T4 ) 6.4, Triiodothyronine (T3) Uptake 35 CURRENT MEDICATIONS: See below. MENTAL STATUS EXAMINATION: Patient is a 22 -year old male, who is alert, uncooperative ( he was refusing to speak to me, he was called twice and he didn't cpme. This interview was possible because I went looking for him to his room, dressed in hospital clothes with poor eye contact, irritable Speech: Is normal in tone, rate and volume. Language skills are Fair. Thought processes including: Rational, coherent Thought content: Focused on going to medical terminologist treatment, starting a new life in [place] to stay away from drugs Abstract reasoning, and computation: Fair. Description of associations: Good. Description of abnormal or psychotic thoughts: Denies SI/HI, A/V hallucinations , thought delusions Judgment: Very poor Insight: Very poor Orientation: Oriented x 3 Recent and remote memory: Fair Attention span and concentration: Fair. Language: Fair. Fund of knowledge: Average. Mood: Depressed. Affect: Anxious/depressed. DIAGNOSES: 1. Opioid use disorder 2. Opioid induced depressive disorder ASSESSMENT: Patient has been admitted to this unit several times. This is the third admission in approximately one and half months. He has made plans to stay away from drugs but he hasn't complied with it. the addiction problem is getting worse, this time he had to receive Narcan twice at the ED. He needs medical terminologist treatment and stay from his , since both of them use drugs. The patient has very poor judgment and insight, he is not motivated for change. he says if he goes to [place], where his has some relatives, he will be able to stay away from drugs and have a new beginning. He doesn't want to see he has a problem he needs to address. The problem is not external to him. MANAGEMENT PLAN: Patient is going to intermediate treatment tonight. TIME SPENT: 30 minutes. Vital Signs Vital Signs Date Time Temp Pulse Resp B/P (MAP) Pulse Ox O2 Delivery O2 Flow Rate FiO2 05/18/17 06:52 98.2 77 16 134/63 (86) Room Air 05/14/17 09:15 98 05/13/17 22:50 2.0 100 Laboratory Data 24H Labs Laboratory Tests 2 05/17/17 13:57: Thyroid Stimulating Hormone (TSH) 0.547, Free Thyroxine Index 2.2, Thyroxine (T4 ) 6.4, Triiodothyronine (T3) Uptake 35 Current Medications Current Medications Acetaminophen (Tylenol Tab) 650 mg Q6HP PRN PO HEADACHE or DISCOMFORT; Start 05/14/17 at 11:30; Stop 06/13/17 at 11:29 Al Hydrox/Mg Hydrox/Simethicone (Mylanta) 30 ml Q4HP PRN PO HEARTBURN/ INDIGESTION; Start 05/14/17 at 11:30; Stop 06/13/17 at 11:29 Clonidine HCl (Catapres) 0.1 mg Q6HP PO ; Start 05/14/17 at 12:45; Stop at 13:03; Status DC Clonidine HCl (Catapres) 0.1 mg Q6HP PRN PO anxiety/aggitation Last administered on 05/17/17t 22:07; Start 05/14/17 at 13:15; Stop 06/13/17 at 13: 14 Diphenhydramine HCl (Benadryl) 50 mg QHS PO ; Start 05/17/17 at 21:00; Stop at 20:59 Escitalopram Oxalate (Lexapro) 10 mg DAILY PO Last administered on 05/17/17 08:22; Start 05/14/17 at 09:00; Stop 06/13/17 at 08:59 Gabapentin (Neurontin) 300 mg QAM PO Last administered on 05/17/17 08:22; Start 05/14/17 at 09:00; Stop 06/13/17 at 08:59 Gabapentin (Neurontin) 900 mg QHS PO Last administered on 05/17/17 20:35; Start 05/14/17 at 21:00; Stop 06/13/17 at 20:59 Home Med (Med Rec Complete!) ASDIRECTED XX ; Start 05/14/17 at 06:30; Stop at 06:30; Status DC Hydroxyzine HCl (Atarax) 25 mg Q6HP PRN PO ANXIETY Last administered on 17:41; Start 05/16/17 at 11:00; Stop 06/15/17 at 10:59 Hydroxyzine HCl (Atarax) 50 mg Q4HP PRN PO ITCHING Last administered on 20:31; Start 05/14/17 at 12:45; Stop 06/13/17 at 12:44 Magnesium Hydroxide (Milk Of Magnesia) 30 ml DAILYPRN PRN PO CONSTIPATION; Start 05/14/17 at 11:30; Stop 06/13/17 at 11:29 Multivitamins (Theragram-M) 1 tab DAILY PO Last administered on 05/17/17 08: 22; Start 05/14/17 at 09:00; Stop 06/13/17 at 08:59 Naloxone HCl (Narcan) 4 mg STAT STAT IV Last administered on 05/13/17 23:04 ; Start 05/13/17 at 23:04; Stop 05/13/17 at 23:05; Status DC Prazosin HCl (Minipress) 2 mg QHSP PRN PO nightmares; Start 05/14/17 at 11:30 ; Stop 06/13/17 at 11:29 Trazodone HCl (Desyrel) 150 mg QHSP PRN PO INSOMNIA Last administered on 12/25/ 17at 20:35; Start 05/14/17 at 11:30; Stop 06/13/17 at 11:29 Allergies Coded Allergies: No Known Allergies (Unverified , 05/02/17) DARELL FAULKNER MD May 18, 2017 10:58
[2017-05-18] MEDS: hydrOXYzine 25 MG TAB PO PRN (11:28)
[2017-05-18] MEDS ORDERED: hydrOXYzine 25 MG TAB PO PRN (13:00)
[2017-05-18] MEDS: hydrOXYzine 50 MG TAB PO PRN (13:07)
[2017-05-18] MEDS ORDERED: DIPH50CA PO (17:47)
[2017-05-18] MEDS ORDERED: CLONI1TA PO (17:47)
[2017-05-18 18:35] VITALS: BP 126/61
[2017-05-18] MEDS: diphenhydrAMINE 50 MG CAP PO SCH (20:45)
--- NOTE | 2017-05-18 20:46 | HPE ---
DATE OF ADMISSION: 05/14/2017 Please refer to the psychiatric history and evaluation for further details on this admission. This examination and history is intended for medical issues which may need treatment, followup, or consult on this 22-year-old male who was recently a patient on the inpatient mental health unit. He was treated and stabilized in the emergency room (ER) after having overdosed and smoked fentanyl. ALLERGIES: No known allergies. PRIMARY CARE PROVIDER: [facility]. 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 Ethyl alcohol (EtOH): He states none. Smokes no cigarettes. Recreational drug use: He states he smokes heroin, he thought he was smoking heroin. PAST MEDICAL HISTORY: Depression. PAST SURGICAL HISTORY: Negative. LABORATORY STUDIES: WBC 11.3, hemoglobin 13.8, hematocrit 40.1, platelets 221. EKG on file sinus rhythm. Electrolytes were normal. BUN and creatinine 12 and 0.95. AST was elevated at 45, ALT elevated at 88. TSH 4.31. CT of the head was negative. Chest x-ray of the chest was negative. Urine was positive for opiates. HOME MEDICATIONS: - escitalopram 10 mg by mouth daily - hydroxyzine 50 mg by mouth every 4 hours as needed for anxiety - Multi-Malathi one by mouth daily - trazodone 150 mg by mouth nightly as needed for sleep - gabapentin 300 mg by mouth daily - prazosin 2 mg by mouth nightly as needed for nightmares REVIEW OF SYSTEMS: Ten systems review was done and was unremarkable. The patient had no specific complaints. PHYSICAL EXAMINATION: 22-year-old cooperative male in no acute distress. Height 71 inches, weight 75.3 kg, body mass index (BMI) 23.2. Temperature 98.3, pulse 81, respirations 14. Patient is alert and oriented times three. Pupils equal and reactive to light. Extraocular movements are intact. Cornea and sclerae clear. Conjunctivae is normal. No facial asymmetry. Pharynx, tongue, gums pink and moist. Tongue is midline. NECK: Supple without lymphadenopathy. No thyromegaly. No goiter. Carotids are 2+ without bruit. CHEST: Clear to auscultation without wheeze or retraction. HEART: Regular. ABDOMEN: Benign. Bowel sounds positive. GENITOURINARY/RECTAL: Not done. EXTREMITIES: Show equal strength. Full range of motion. No cyanosis, clubbing, or edema. Peripheral pulses equal and palpable bilaterally. SKIN: Warm and dry. IMPRESSION/PLAN: Psychiatric plan per psychiatry. Monitor for drug withdrawal. No acute medical issues.
== END 2017-05-18 23:58 | DRG 899 ==
LOC: M ED 22:50 → EDBD 22:50 → M ED INP 05-14 09:17 → M PSY 05-14 10:48
PROVIDERS: ADMIT Psychiatry & Neurology Psychiatry; ATTEND Psychiatry & Neurology Psychiatry
DX: F11.14 Opioid abuse with opioid-induced mood disorder (principal); Z79.899 Other long term (current) drug therapy; Z91.5 Personal history of self-harm

== ENCOUNTER 2017-08-05 21:26 | Emergency (ER) | payer OTHER | END 2017-08-06 00:01 | disposition home or self-care (01) | LOC: M ED 08-06 00:01 | DX: F41.9 Anxiety disorder, unspecified (principal); F32.9 Major depressive disorder, single episode, unspecified; F90.9 Attention-deficit hyperactivity disorder, unspecified type; F19.10 Other psychoactive substance abuse, uncomplicated; Z79.899 Other long term (current) drug therapy | CPT/HCPCS: 99284 ==